=== PATIENT | male | born 1955 | race Caucasian/White ===

== ENCOUNTER → 2017-04-07 | Outpatient (CLI) | payer OTHER ==
[2017-04-07 14:41] LABS: CH 32.3; CHCM 34.4; HGB 14.8 gm/dL (13.0-17.5); MCH 31.8 pg (25.0-35.0); MCHC 33.6 g/dL (31.0-37.0); MCV 94.5 fL (80.0-100.0); Mean Platelet Volume 6.6; RBC 4.66 m/uL (4.30-5.90); RDW 12.9 % (11.5-15.5); WBC 7.5 k/uL (3.8-10.6)
[2017-04-07 14:57] LABS: Anion Gap 9 mmol/L; Blood Urea Nitrogen 18 mg/dL (9-20); Calcium 9.6 mg/dL (8.4-10.2); Carbon Dioxide 25 mmol/L (22-30); Chloride 107 mmol/L (98-107); Glucose 142 mg/dL (74-99); Non-African American GFR(MDRD) >60 (>60 ml/min/1.73 sqM); Potassium 4.2 mmol/L (3.5-5.1); Sodium 141 mmol/L (137-145)
== END | disposition home or self-care (01) ==
LOC: LABWHC1 14:18
PROVIDERS: ATTEND Internal Medicine Interventional Cardiology
DX: I25.10 Atherosclerotic heart disease of native coronary artery without angina pectoris (principal); I10 Essential (primary) hypertension
CPT/HCPCS: 36415; 80048; 80053; 84439; 84443; 85027; 85652; 86038; 86140; 86431; 86618

== ENCOUNTER 2017-05-18 10:13 | Emergency (ER) | payer OTHER ==
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
[2017-05-18 11:41] LABS: Amorphous Sediment,Urine Rare /hpf; Appearance,Urine Cloudy (Clear); Bilirubin,Urine Negative (Negative); Glucose,Urine (UA) Negative (Negative); Ketones,Urine Negative (Negative); Leukocyte Esterase,Urine Negative (Negative); Mucus,Urine Rare /hpf; Nitrite,Urine Negative (Negative); PH, Urine 7.5 (5.0-8.0); Particle Count 18051; Protein,Urine Negative (Negative); RBC,Urine 3 /hpf (0-5); Specific Gravity,Urine 1.017 (1.001-1.035); UA Billing (MACRO vs. MICRO) MICRO; Urobilinogen,Urine <2.0 mg/dL (<2.0); WBC,Urine 2 /hpf (0-5)
[2017-05-18 11:48] LABS: ALT 33 U/L (21-72); AST 23 U/L (17-59); Alkaline Phosphatase 95 U/L (38-126); Anion Gap 10 mmol/L; Blood Urea Nitrogen 20 mg/dL (9-20); Calcium 9.5 mg/dL (8.4-10.2); Carbon Dioxide 23 mmol/L (22-30); Chloride 107 mmol/L (98-107); Glucose 93 mg/dL (74-99); Magnesium 2.1 mg/dL (1.6-2.3); Non-African American GFR(MDRD) >60 (>60 ml/min/1.73 sqM); Potassium 4.6 mmol/L (3.5-5.1); Sodium 140 mmol/L (137-145); Total Bilirubin 0.6 mg/dL (0.2-1.3); Total Protein 6.7 g/dL (6.3-8.2)
[2017-05-18 12:04] LABS: Basophils % (A) 0 %; CH 32.1; CHCM 34.8; Eosinophils # (A) 0.2 k/uL (0-0.7); Eosinophils % (A) 2 %; HCT 43.5 % (39.0-53.0); HDW 2.79; HGB 15.4 gm/dL (13.0-17.5); Luc # (Auto) 0.12; Luc % (Auto) 2; Lymphocytes # (A) 1.1 k/uL (1.0-4.8); Lymphocytes % (A) 15 %; MCH 32.8 pg (25.0-35.0); MCHC 35.4 g/dL (31.0-37.0); MCV 92.7 fL (80.0-100.0); Mean Platelet Volume 6.7; Monocytes # (A) 0.5 k/uL (0-1.0); Monocytes % (A) 6 %; Neutrophils # (A) 5.8 k/uL (1.3-7.7); Neutrophils % (A) 76 %; RBC 4.69 m/uL (4.30-5.90); RDW 12.4 % (11.5-15.5); WBC 7.7 k/uL (3.8-10.6); WBC (Perox) 7.89
[2017-05-18 12:12] VITALS: RESP 16
[2017-05-18 13:36] VITALS: BP 180/87; PULSE 68; TEMP 97.1
== END 2017-05-18 13:33 | disposition home or self-care (01) ==
LOC: EC 10:13
DX: M79.1 Myalgia (principal); I10 Essential (primary) hypertension; M19.90 Unspecified osteoarthritis, unspecified site; I25.2 Old myocardial infarction; F17.200 Nicotine dependence, unspecified, uncomplicated; Z79.1 Long term (current) use of non-steroidal anti-inflammatories (NSAID); Z79.82 Long term (current) use of aspirin; Z79.899 Other long term (current) drug therapy
CPT/HCPCS: 36415; 80053; 81001; 83735; 85025; 99283

== ENCOUNTER → 2018-05-16 | Outpatient (CLI) | payer MEDICARE, OTHER ==
--- NOTE | 2018-05-16 13:57 | US ---
EXAMINATION TYPE: US abdomen complete DATE OF EXAM: 05/16/2018 COMPARISON: NONE CLINICAL HISTORY: R63.4 Abnormal Weight Loss, R11 Nausea; patient stated weighted 202lbs in 2016,now weighs 175lbs after watching calorie, fat and sugar intake; occasional nausea EXAM MEASUREMENTS: Liver Length: 14.1 cm Gallbladder Wall: 0.2 cm CBD: 0.5 cm Spleen: 10.8 cm Right Kidney: 10.6 x 5.5 x 5.2 cm Left Kidney: 11.2 x 6.8 x 5.9 cm Pancreas: tail is gassed out Liver: wnl Gallbladder: wnl, fold in wall is noted nearer to neck Evidence for sonographic Barrientos's sign: no CBD: wnl Spleen: wnl Right Kidney: No hydronephrosis or masses seen Left Kidney: No hydronephrosis or masses seen; lobular border Upper IVC: wnl Abd Aorta: irregular intimal thickening is noted lower aorta and into common iliac artery; mild ecta roslyn is noted distal aorta on images # [id number] and [id number]. IMPRESSION: 1. No acute intra-abdominal ultrasound abnormality. 2. 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
== END | disposition home or self-care (01) ==
LOC: RADUSWWP 09:31
PROVIDERS: ATTEND Family Medicine
DX: R11.0 Nausea (principal); I70.0 Atherosclerosis of aorta; R63.4 Abnormal weight loss
CPT/HCPCS: 76700

== ENCOUNTER 2019-04-23 10:25 | Emergency (ER) | payer MEDICARE ==
[2019-04-23] MEDS ORDERED: DIPH,PERTUS(ACELL)TETVAC-LF 0.5 ML VIAL IM ONE (11:39)
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
--- NOTE | 2019-04-23 12:23 | XR ---
EXAMINATION TYPE: XR hand complete RT DATE OF EXAM: 04/23/2019 CLINICAL HISTORY: Right hip pain since recent injury TECHNIQUE: Frontal, lateral and oblique images of the right hand are obtained. COMPARISON: None. FINDINGS: There is a comminuted nondisplaced fracture of the base of the third metacarpal extending i nto the metaphysis and proximal diaphysis with overlying soft tissue swelling. There is a chronic fra cture deformity of the fifth metacarpal. Mild degenerative changes of the distal interphalangeal join t and first metacarpal phalangeal joint are demonstrated as joint space narrowing and small marginal osteophytes. Punctate focus of subcutaneous emphysema is seen over the dorsal soft tissue swelling of the hand. Amputation of the third distal phalanx tuft appears chronic as there is no focal soft tiss ue swelling present. IMPRESSION: 1. Acute, comminuted, nondisplaced fracture of the base of the third metacarpal extending into the pr oximal diaphysis with overlying soft tissue swelling and punctate focus of subcutaneous emphysema. Co rrelate for laceration site or less likely superimposed infection. 2. Chronic fracture deformity of the fifth metacarpal and amputation of the distal third phalangeal t uft that is likely chronic given the overlying soft tissue swelling.
[2019-04-23 13:08] VITALS: BP 155/77; PULSE 62; RESP 16; TEMP 98.8
== END 2019-04-23 13:06 | disposition home or self-care (01) ==
LOC: EC 10:25
DX: S62.312A Displaced fracture of base of third metacarpal bone, right hand, initial encounter for closed fracture (principal); S61.411A Laceration without foreign body of right hand, initial encounter; I25.10 Atherosclerotic heart disease of native coronary artery without angina pectoris; I10 Essential (primary) hypertension; I25.2 Old myocardial infarction; M19.90 Unspecified osteoarthritis, unspecified site; F17.200 Nicotine dependence, unspecified, uncomplicated; Z85.828 Personal history of other malignant neoplasm of skin; Z95.5 Presence of coronary angioplasty implant and graft; Z79.82 Long term (current) use of aspirin; Z79.1 Long term (current) use of non-steroidal anti-inflammatories (NSAID); Z79.899 Other long term (current) drug therapy; Z23 Encounter for immunization; W24.0XXA Contact with lifting devices, not elsewhere classified, initial encounter; Y93.89 Activity, other specified; Y92.009 Unspecified place in unspecified non-institutional (private) residence as the place of occurrence of the external cause
CPT/HCPCS: 29125; 90471; 90715; 99284

== ENCOUNTER 2019-10-07 09:00 | Observation (INO) | payer MEDICARE ==
[2019-10-07] MEDS ORDERED: NITROGLYCERIN OINT 1 INCH/GM PACKET TOPICAL STA (09:48)
[2019-10-07] MEDS ORDERED: ASPIRIN 81 MG PO STA (09:48)
[2019-10-07 09:59] LABS: Basophils # (A) 0.1 k/uL (0-0.2); Basophils % (A) 1 %; Eosinophils # (A) 0.1 k/uL (0-0.7); Eosinophils % (A) 2 %; HCT 43.5 % (39.0-53.0); HGB 14.8 gm/dL (13.0-17.5); Lymphocytes # (A) 0.8 k/uL (1.0-4.8); Lymphocytes % (A) 16 %; MCH 32.2 pg (25.0-35.0); MCHC 33.9 g/dL (31.0-37.0); MCV 94.9 fL (80.0-100.0); Mean Platelet Volume 6.4; Monocytes # (A) 0.3 k/uL (0-1.0); Monocytes % (A) 5 %; Neutrophils # (A) 3.5 k/uL (1.3-7.7); Neutrophils % (A) 73 %; Platelet Count 241 k/uL (150-450); RBC 4.59 m/uL (4.30-5.90); RDW 12.1 % (11.5-15.5); WBC 4.8 k/uL (3.8-10.6)
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
[2019-10-07 10:17] LABS: ALT 27 U/L (21-72); AST 28 U/L (17-59); African American GFR (CKD) >90 (>60 ml/min/1.73 sqM); Albumin 3.6 g/dL (3.5-5.0); Alkaline Phosphatase 65 U/L (38-126); Anion Gap 6 mmol/L; Blood Urea Nitrogen 24 mg/dL (9-20); Calcium 9.4 mg/dL (8.4-10.2); Carbon Dioxide 27 mmol/L (22-30); Chloride 106 mmol/L (98-107); Glucose 115 mg/dL (74-99); Magnesium 2.1 mg/dL (1.6-2.3); Non-African American GFR(CKD) 83 (>60 ml/min/1.73 sqM); Potassium 4.5 mmol/L (3.5-5.1); Sodium 139 mmol/L (137-145); Total Bilirubin 0.8 mg/dL (0.2-1.3); Total Protein 6.5 g/dL (6.3-8.2)
[2019-10-07 10:18] LABS: Partial Thromboplastin Time 25.5 sec (22.0-30.0); Prothrombin Time 10.7 sec (9.0-12.0)
--- NOTE | 2019-10-07 10:20 | XR ---
EXAMINATION TYPE: XR chest 2V DATE OF EXAM: 10/07/2019 COMPARISON: 01/17/2016 HISTORY: Chest pain. History of myocardial infarct and COPD. TECHNIQUE: Frontal and lateral views of the chest are obtained. FINDINGS: Nodular densities are subtly seen in the left lung base and right lower lung. Underlying C OPD is present with pulmonary hyperinflation and biapical lucency. Peribronchial cuffing is noted, li mahesh reactive in this patient with COPD. Mild multilevel degenerative changes of the spine. Cardia me diastinal silhouette is within normal limits. No focal consolidation, pleural effusion or pneumothora x. IMPRESSION: 1. No focal consolidation. 2. Peribronchial cuffing and underlying COPD. Peribronchial cuffing is likely reactive. Alternatively consider bronchitis. 3. Bibasilar nodular densities. Follow-up nonemergent full CT the thorax with contrast is recommended for further characterization.
[2019-10-07] MEDS ORDERED: HEPARIN SODIUM,PORCINE 5,000 UNIT/ML 1 ML VIAL IV ONE (11:37)
[2019-10-07] MEDS ORDERED: HEPARIN SOD,PORK IN 0.45% NACL 25,000 UNIT in 0.45% NACL 1 250ML.BAG IV SCH (11:45)
[2019-10-07] MEDS ORDERED: NITROGLYCERIN SL TABS 0.4 MG TAB SUBLINGUAL PRN ×2 (12:21→13:01)
[2019-10-07 13:00] VITALS: BMI 24.8
[2019-10-07] MEDS ORDERED: ALPRAZolam 0.25 MG TAB PO PRN (13:01)
[2019-10-07] MEDS ORDERED: IPRATROPIUM-ALBUTEROL 3 ML NEB INHALATION PRN (13:03)
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
[2019-10-07] MEDS: IPRATROPIUM-ALBUTEROL 3 ML NEB INHALATION SCH ×2 (15:26→19:13)
[2019-10-07] MEDS: PANTOPRAZOLE 40 MG/10 ML VIAL IVP SCH ×2 (16:08→19:55)
[2019-10-07] MEDS: NITROGLYCERIN OINT 1 INCH/GM PACKET TOPICAL SCH (19:04)
[2019-10-07] MEDS: SYMBICORT 160-4.5 MCG INHALER INHALATION SCH (19:15)
[2019-10-07] MEDS ORDERED: ACETAMINOPHEN TAB 325 MG TAB PO PRN (19:48)
[2019-10-07] MEDS ORDERED: LISINOPRIL 20 MG TAB PO SCH (21:00)
[2019-10-07] MEDS ORDERED: ATORVASTATIN 40 MG TAB PO SCH (21:00)
[2019-10-08] MEDS: NITROGLYCERIN OINT 1 INCH/GM PACKET TOPICAL SCH ×2 (00:27→03:04)
[2019-10-08 00:40] VITALS: RESP 18
[2019-10-08 04:05] LABS: Cholesterol 104 mg/dL (<200); HDL Cholesterol 51 mg/dL (40-60); LDL Cholesterol,Calculated 41 mg/dL (0-99); Triglycerides 60 mg/dL (<150)
--- NOTE | 2019-10-08 08:14 | P.PN ---
Subjective HISTORY OF PRESENTING ILLNESS This is a pleasant 63-year-old male past medical history significant for coronary artery disease in the setting of an inferior wall myocardial infarction with successful stent placement to the RCA and a known occlusion of the circumflex, hypertension, dyslipidemia, COPD and chronic nicotine dependence. He is seen and examined laying flat in bed in no acute distress. He continues to feel ongoing discomfort in the chest that is constant with no specific aggravating or alleviating factors. An acute event has been ruled out. He denies significant shortness of breath, no dizziness or palpitations. Continues to cough sporadically. Blood pressure 141/77 heart rate 55 afebrile and maintaining oxygen saturation on room air. Laboratory data reviewed, cardiac enzymes negative x3, LDL 41, HDL 51. Echo pending. Currently maintained on atenolol 25 mg daily, amlodipine 10 mg daily, aspirin 81 mg daily, atorvastatin 40 mg daily, lisinopril 20 mg daily and hydrochlorothiazide 12.5 mg daily. PHYSICAL EXAMINATION CONSTITUTIONAL: No apparent distress. HEENT: Head is normocephalic. Pupils are equal, round. Sclerae anicteric. Mucous membranes of the mouth are moist. No JVD. No carotid bruit. CHEST EXAMINATION: Faint inspiratory and expiratory wheezes throughout lung cesar. No chest wall tenderness is noted on palpation or with deep breathing. No rhonchi or rales. HEART EXAMINATION: Regular rate and rhythm. S1, S2 heard. No murmurs, gallops or rub. EXTREMITIES: 2+ peripheral pulses, no lower extremity edema and no calf tenderness. ASSESSMENT Chest pain, atypical. Underlying bronchitis COPD History of coronary artery disease with acute inferior wall [place] 2009 Hypertension Dyslipidemia Chronic nicotine dependence PLAN If echo is unchanged, he may be discharged from a cardiac perspective. Recommend outpatient stress testing once his respiratory illness has improved. Follow up with Dr. Hernandez in the office in 2-3 weeks. Nurse Practitioner note has been reviewed, I agree with a documented findings and plan of care. Patient was seen and examined. Objective - Vital Signs Vital signs: Vital Signs Temp 97.9 F 10/08/19 07:49 Pulse 55 L 10/08/19 07:49 Resp 18 10/08/19 07:49 BP 141/77 10/08/19 07:49 Pulse Ox 97 10/08/19 07:49 Intake & Output 10/07/19 10/08/19 10/08/19 18:59 06:59 18:59 Intake Total 85.414 Balance 85.414 Weight 78.653 kg Intake: Intake, IV Titration 85.414 Amount Heparin Sod,Pork in 0.45% 85.414 NaCl 25,000 unit In 0.45 % NaCl 1 250ml.bag @ 12 UNITS/KG/HR 9.438 mls/hr IV .Q24H [facility] Rx#: [id number] Other: # Voids 1 - Labs CBC & Chem 7: 10/07/19 09:17 10/07/19 09:17 Labs: Abnormal Lab Results - Last 24 Hours (Table) 10/07/19 10/07/19 10/07/19 Range/Units 09:17 09:17 20:24 Lymphocytes # 0.8 L (1.0-4.8) k/uL APTT 40.9 H (22.0-30.0) sec BUN 24 H (9-20) mg/dL Glucose 115 H (74-99) mg/dL 10/08/19 Range/Units 03:04 Lymphocytes # (1.0-4.8) k/uL APTT 65.4 H (22.0-30.0) sec BUN (9-20) mg/dL Glucose (74-99) mg/dL
[2019-10-08] MEDS ORDERED: ASPIRIN 325 MG TAB PO SCH (09:00)
[2019-10-08] MEDS ORDERED: HYDROCHLOROTHIAZIDE 12.5 MG CAP PO SCH (09:00)
[2019-10-08] MEDS ORDERED: LISINOPRIL 20 MG TAB PO SCH (09:00)
[2019-10-08] MEDS ORDERED: amLODIPine 10 MG TAB PO SCH (09:00)
[2019-10-08] MEDS ORDERED: ATENOLOL 25 MG TAB PO SCH ×2 (09:00)
[2019-10-08] MEDS ORDERED: ASPIRIN 81 MG PO SCH (09:00)
[2019-10-08] MEDS: PANTOPRAZOLE 40 MG/10 ML VIAL IVP SCH (10:08)
[2019-10-08] MEDS: IPRATROPIUM-ALBUTEROL 3 ML NEB INHALATION SCH ×2 (11:00→11:03)
[2019-10-08] MEDS: SYMBICORT 160-4.5 MCG INHALER INHALATION SCH (11:01)
[2019-10-08 11:48] VITALS: BP 137/64; PULSE 50; TEMP 97.8
--- NOTE | 2019-10-08 15:01 | ECHOF ---
Referral Reason: MEASUREMENTS -------- HEIGHT: 177.8 cm WEIGHT: 78.5 kg BP: 129/74 IVSd: 1.4 cm (0.6 - 1.1) LVIDd: 4.6 cm (3.9 - 5.3) LVPWd: 1.1 cm (0.6 - 1.1) IVSs: 1.7 cm LVIDs: 3.1 cm LVPWs: 1.3 cm RVIDd: 4.0 cm (< 3.3) LAESV Index (A-L): 47.90 ml/m Ao Diam: 3.3 cm (2.0 - 3.7) AV Cusp: 2.3 cm (1.5 - 2.6) EPSS: 0.1 cm MV E Wallace: 0.93 m/s MV DecT: 259 ms MV A Wallace: 0.48 m/s MV E/A Ratio: 1.92 RAP: 20.00 mmHg RVSP: 48.11 mmHg MV EF SLOPE: 43.55 mm/s (70 - 150) MV EXCURSION: 14.99 mm (> 18.000) FINDINGS -------- Resting bradycardia (HR<60bpm). This was a technically adequate study. The left ventricular size is normal. There is mild concentric left ventricular hypertrophy. Overa ll left ventricular systolic function is low-normal with, an EF between 50 - 55 %. Increased Lap Gr shona II Diastolic Dysfunction. Inferior Hypokinesis The right ventricle is mildly enlarged. LA is severely dilated >40 ml/m2 The right atrium is mildly enlarged. Interatrial and interventricular septum intact. The aortic valve is trileaflet and appears structurally normal. There is mild aortic valve sclerosi s. There is no evidence of aortic regurgitation. There is no evidence of aortic stenosis. Moderate mitral regurgitation is present. Moderate tricuspid regurgitation present. There is moderate pulmonary hypertension. The right bev tricular systolic pressure, as measured by Doppler, is 48.11mmHg. The pulmonic valve was not well visualized. The aortic root size is normal. The inferior vena cava is dilated with poor inspiratory collapse which is consistent with estimated r ight atrial pressure of 20 mmHg. There is no pericardial effusion. CONCLUSIONS -------- 1. Resting bradycardia (HR<60bpm). 2. This was a technically adequate study. 3. The left ventricular size is normal. 4. There is mild concentric left ventricular hypertrophy. 5. Overall left ventricular systolic function is low-normal with, an EF between 50 - 55 %. 6. Increased Lap Grade II Diastolic Dysfunction. 7. Inferior Hypokinesis 8. The right ventricle is mildly enlarged. 9. LA is severely dilated >40 ml/m2 10. The right atrium is mildly enlarged. 11. Interatrial and interventricular septum intact. 12. The aortic valve is trileaflet and appears structurally normal. 13. There is mild aortic valve sclerosis. 14. There is no evidence of aortic regurgitation. 15. There is no evidence of aortic stenosis. 16. Moderate mitral regurgitation is present. 17. Moderate tricuspid regurgitation present. 18. There is moderate pulmonary hypertension. 19. The right ventricular systolic pressure, as measured by Doppler, is 48.11mmHg. 20. The pulmonic valve was not well visualized. 21. The aortic root size is normal. 22. The inferior vena cava is dilated with poor inspiratory collapse which is consistent with estimat ed right atrial pressure of 20 mmHg. 23. There is no pericardial effusion. SHIFT COORDINATOR: Hilda Hadley RDCS
--- NOTE | 2019-10-08 15:11 | P.DS ---
Providers Date of admission: 10/07/19 12:22 Attending physician: Hector Gomez Consults: 10/07/19 12:22 Consult Physician Urgent Consulting Provider: [facility] Consult Reason/Comments: Unstable angina Do you want consulting provider notified?: Yes Primary care physician: Saul Bain [facility] Course: 63-year-old pleasant gentleman with a history of coronary artery disease appears to have COPD can use to smoke came in with complains of neck pain radiating to the chest area. Patient's neck pain is severe chest pain is pressure-like and mild nonradiating associated shortness of breath. Denied any lightheadedness or chest pain is nonpleuritic not associated with food. Patient also has epigastric abdominal burning sensation S it along with retrosternal burning sensation. Patient denied any fever chills. Patient was having cough was treated with antibiotics and the systemic steroids for his COPD although patient doesn't tolerate cystic steroids very well because of which she stopped taking oral steroids. Patient has significant wheeze on exam. 10/08/2019 Patient was evaluated by cardiology to cleared him for discharge patient's abdominal pain and burning sensation improved patient will be discharged today. Patient wheezing did improve. Patient has multiple nodular lesions in the lung suspicious for sarcoidosis, will need further evaluation by pulmonology patient will be referred to pulmonology as an outpatient. Patient was given prescription for Prilosec for about 30 days PHYSICAL EXAMINATION: GENERAL: The patient is alert and oriented x3, not in any acute distress. Well developed, well nourished. HEENT: Pupils are round and equally reacting to light. EOMI. No scleral icterus. No conjunctival pallor. Normocephalic, atraumatic. No pharyngeal erythema. No thyromegaly. CARDIOVASCULAR: S1 and S2 present. No murmurs, rubs, or gallops. PULMONARY: Chest is clear to auscultation, no wheezing or crackles. ABDOMEN: Soft, nontender, nondistended, normoactive bowel sounds. No palpable organomegaly. MUSCULOSKELETAL: No joint swelling or deformity. EXTREMITIES: No cyanosis, clubbing, or pedal edema. NEUROLOGICAL: Gross neurological examination did not reveal any focal deficits. SKIN: No rashes. Assessment and Plan Plan: Chest pain: Atypical , ruled out acute medicine syndromes cardiology evaluated the patient. Patient probably has multiple etiologies of his chest pain #1 musculoskeletal from his neck and probably gastroesophageal reflux disease. Shortness of breath probably secondary to COPD patient was started on inhaled steroids inhalational treatments I do not believe patient will need systemic steroids -Coronary artery disease -COPD with mild acute exacerbation -Hypertension -Degenerative arthritis including cervical thoracolumbar spine disease. -Hyperlipidemia -Gastroesophageal reflux disease with a possible gastritis from systemic steroids and nonsteroidal anti-inflammatory medications Patient Condition at Discharge: Stable Plan - Discharge Summary Discharge Rx Participant: No New Discharge Prescriptions: New Omeprazole [PriLOSEC] 40 mg PO AC-BRKFST #30 capsule.dr Continue Aspirin 81 mg PO DAILY Nitroglycerin Sl Tabs [Nitrostat] 0.4 mg SUBLINGUAL Q5M PRN PRN Reason: Chest Pain Atenolol [Tenormin] 25 mg PO DAILY Multivitamin [Men's Multi-Vitamin] 1 tab PO DAILY Ubidecarenone [Co Q-10] 100 mg PO DAILY [place]-3 Fatty Acids/Fish Oil [Fish Oil 1,000 mg Softgel] 1 cap PO DAILY Cholecalciferol [Vitamin D3 (25 Mcg = 1000 Iu)] 1,000 unit PO DAILY Budesonide-Formot 160-4.5 Mcg [Symbicort 160-4.5 Mcg Inhaler] 2 puff INHALATION RT-BID #1 puff Albuterol Inhaler [Ventolin Hfa Inhaler] 2 puff INHALATION RT-Q4H #1 amLODIPine [Norvasc] 10 mg PO DAILY ALPRAZolam [Xanax] 0.25 - 0.5 mg PO BID PRN PRN Reason: Anxiety Ipratropium-Albuterol Nebulize [Duoneb 0.5 mg-3 mg/3 ml Soln] 3 ml INHALATION RT-QID Changed Benazepril HCl 20 mg PO DAILY #0 Discontinued Hydrochlorothiazide 12.5 mg PO DAILY Naproxen [Naprosyn] 500 mg PO BID Discharge Medication List Aspirin 81 mg PO DAILY 10/11/14 [History] Atenolol [Tenormin] 25 mg PO DAILY 10/11/14 [History] Nitroglycerin Sl Tabs [Nitrostat] 0.4 mg SUBLINGUAL Q5M PRN 10/11/14 [History] Cholecalciferol [Vitamin D3 (25 Mcg = 1000 Iu)] 1,000 unit PO DAILY 03/27/15 [History] Multivitamin [Men's Multi-Vitamin] 1 tab PO DAILY 03/27/15 [History] [place]-3 Fatty Acids/Fish Oil [Fish Oil 1,000 mg Softgel] 1 cap PO DAILY 03/27/15 [History] Ubidecarenone [Co Q-10] 100 mg PO DAILY 03/27/15 [History] Budesonide-Formot 160-4.5 Mcg [Symbicort 160-4.5 Mcg Inhaler] 2 puff INHALATION RT-BID #1 puff 03/28/15 [Rx] Albuterol Inhaler [Ventolin Hfa Inhaler] 2 puff INHALATION RT-Q4H #1 12/05/15 [Rx] ALPRAZolam [Xanax] 0.25 - 0.5 mg PO BID PRN 04/23/19 [History] amLODIPine [Norvasc] 10 mg PO DAILY 04/23/19 [History] Ipratropium-Albuterol Nebulize [Duoneb 0.5 mg-3 mg/3 ml Soln] 3 ml INHALATION RT-QID 10/07/19 [History] Benazepril HCl 20 mg PO DAILY #0 10/08/19 [Rx] Omeprazole [PriLOSEC] 40 mg PO AC-BRKFSLula #30 capsule. 10/08/19 [Rx] Follow up Appointment(s)/Referral(s): Jazmyn Hernandez MD [STAFF PHYSICIAN] - 2 Weeks Saul Aleman III, MD [Primary Care Provider] - 3 Days Franck Barker MD [STAFF PHYSICIAN] - 1 Week Patient Instructions/Handouts: Chest Pain (GEN) Discharge Disposition: HOME SELF-CARE
== END 2019-10-08 13:00 | disposition home or self-care (01) ==
LOC: EC 09:00 → 1SOBS 12:22
PROVIDERS: ADMIT Internal Medicine; ATTEND Internal Medicine
DX: R07.89 Other chest pain (principal); M54.2 Cervicalgia; R06.02 Shortness of breath; R42 Dizziness and giddiness; R11.0 Nausea; J44.1 Chronic obstructive pulmonary disease with (acute) exacerbation; E78.00 Pure hypercholesterolemia, unspecified; I25.10 Atherosclerotic heart disease of native coronary artery without angina pectoris; I10 Essential (primary) hypertension; M46.93 Unspecified inflammatory spondylopathy, cervicothoracic region; E78.5 Hyperlipidemia, unspecified; K21.9 Gastro-esophageal reflux disease without esophagitis; F41.9 Anxiety disorder, unspecified; I25.2 Old myocardial infarction; F17.200 Nicotine dependence, unspecified, uncomplicated; R00.1 Bradycardia, unspecified; M16.12 Unilateral primary osteoarthritis, left hip; M19.042 Primary osteoarthritis, left hand; M19.041 Primary osteoarthritis, right hand; Z87.828 Personal history of other (healed) physical injury and trauma; Z85.828 Personal history of other malignant neoplasm of skin; Z87.19 Personal history of other diseases of the digestive system; Z95.5 Presence of coronary angioplasty implant and graft; Z98.1 Arthrodesis status; Z90.49 Acquired absence of other specified parts of digestive tract; Z79.899 Other long term (current) drug therapy; Z79.82 Long term (current) use of aspirin; Z79.1 Long term (current) use of non-steroidal anti-inflammatories (NSAID); Z82.49 Family history of ischemic heart disease and other diseases of the circulatory system; Z82.3 Family history of stroke
CPT/HCPCS: 93005 ×2; 96366 ×3; 96375; 96376 ×3; 96365; 99291; 36415; 94640 ×4; 94760 ×2; 93306; 80061; 80053; 83735; 84484; 85025; 85610; 85730 ×2; 71046; G0378 ×2; J1644 ×2; C9113 ×2

== ENCOUNTER → 2019-10-21 | Outpatient (CLI) | payer MEDICARE ==
--- NOTE | 2019-10-21 08:28 | CTL ---
EXAMINATION TYPE: CT Low Dose Lung DATE OF EXAM ORDERED: 10/21/2019 COMPARISON: HISTORY: . Low Dose CT Lung Screening CT DLP: [address] CTDI: 2.5 mGy IV CONTRAST USED: None. SCREENING VISIT: First visit COMPARISON: None. TECHNIQUE: Low dose computed tomography scan was performed through the chest at 1 millimeter thick se ctions and reconstructed images in the coronal plane at [address] DIAGNOSTIC QUALITY: Satisfactory FINDINGS: LUNG NODULES: Right lun. 5 mm solid nodule right upper lobe image 147. 2. right lower lobe solid nodule measuring 7.6 mm image 195. 3. Pleural-based solid nodule measuring 8 mm lateral segment right middle lobe. Image 215. 4. Solid pleural-based nodule measuring 7.6 mm image 272 lateral sulcus. Left lun. Left lower lobe solid nodule measuring 7 mm image 224. 2. 3.6 mm solid nodule left lower lobe image 214. LUNGS: COPD: Severity: Moderate upper lobe emphysematous changes demonstrated. Fibrosis: Severity:None Lymph nodes: None Other findings: None RIGHT PLEURAL SPACE: Effusion: None Calcification: None Thickening: None Pneumothorax: None LEFT PLEURAL SPACE: Effusion: None Calcification: None Thickening: None Pneumothorax: None HEART: Heart Size: Mildly enlarged Coronary calcification: Moderate Pericardial effusion: None OTHER FINDINGS: Upper abdomen: No significant abnormality Bony thorax: Degenerative changes Supraclavicular region: No significant abnormalityOther: No significant abnormalityI IMPRESSION: 1. Nonspecific pulmonary nodularity. 2. Moderate upper lobe emphysematous changes. 3. Coronary artery calcifications. FOLLOW UP CT CHEST RECOMMENDATION: 6 month follow-up by LDCT. Smoking cessation advised. CT LUNG RAD: LUNG RAD CATEGORY probably benign BI-RADS 3
== END | disposition home or self-care (01) ==
LOC: RADCTMAIN 07:41
PROVIDERS: ATTEND Family Medicine
DX: Z12.2 Encounter for screening for malignant neoplasm of respiratory organs (principal); J43.9 Emphysema, unspecified; I25.10 Atherosclerotic heart disease of native coronary artery without angina pectoris; Z87.891 Personal history of nicotine dependence

== ENCOUNTER 2021-02-22 15:11 | Inpatient (IN) | payer MEDICARE ==
[2021-02-22] MEDS ORDERED: ASPIRIN 81 MG PO STA (16:38)
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
[2021-02-22 17:52] LABS: Albumin 3.9 g/dL (3.5-5.0); Calcium 9.8 mg/dL (8.4-10.2); Magnesium 2.1 mg/dL (1.6-2.3); Potassium 4.4 mmol/L (3.5-5.1); Total Bilirubin 1.2 mg/dL (0.2-1.3); Total Protein 6.7 g/dL (6.3-8.2)
[2021-02-22 17:54] LABS: Basophils % (A) 0 %; Eosinophils # (A) 0.1 k/uL (0-0.7); Eosinophils % (A) 1 %; HCT 46.5 % (39.0-53.0); HGB 15.7 gm/dL (13.0-17.5); Lymphocytes # (A) 0.5 k/uL (1.0-4.8); Lymphocytes % (A) 6 %; MCHC 33.8 g/dL (31.0-37.0); MCV 94.7 fL (80.0-100.0); Monocytes # (A) 0.3 k/uL (0-1.0); Monocytes % (A) 4 %; Neutrophils % (A) 89 %; Platelet Count 182 k/uL (150-450); RBC 4.91 m/uL (4.30-5.90); RDW 12.7 % (11.5-15.5)
[2021-02-22 17:55] LABS: Partial Thromboplastin Time 23.9 sec (22.0-30.0); Prothrombin Time 10.7 sec (9.0-12.0)
--- NOTE | 2021-02-22 17:59 | XR ---
EXAMINATION TYPE: XR chest 1V portable DATE OF EXAM: 02/22/2021 COMPARISON: 10/07/2019 HISTORY: Chest pain TECHNIQUE: Single view FINDINGS: There is no heart failure nor confluent pneumonic infiltrate. There are a few calcified gra nulomata at the pulmonary dylan. Is no pleural effusion. Heart size is normal. IMPRESSION: No active cardiopulmonary disease. Old granulomatous disease. No change.
[2021-02-22] MEDS ORDERED: HEPARIN SODIUM,PORCINE 5,000 UNIT/ML 1 ML VIAL IV PRN (18:18)
[2021-02-22] MEDS ORDERED: HEPARIN SODIUM,PORCINE 5,000 UNIT/ML 1 ML VIAL IV ONE (18:18)
[2021-02-22] MEDS ORDERED: NITROGLYCERIN SL TABS 0.4 MG TAB SUBLINGUAL STA (18:22)
[2021-02-22] MEDS ORDERED: NITROGLYCERIN OINT 1 INCH/GM PACKET TOPICAL STA (18:23)
[2021-02-22] MEDS ORDERED: NITROGLYCERIN SL TABS 0.4 MG TAB SUBLINGUAL PRN ×2 (18:24→19:21)
[2021-02-22] MEDS: HEPARIN SOD,PORK IN 0.45% NACL 25,000 UNIT in 0.45% NACL 1 250ML.BAG IV SCH (18:54)
[2021-02-22] MEDS ORDERED: ALPRAZolam 0.5 MG TAB PO PRN (19:21)
[2021-02-22] MEDS ORDERED: IPRATROPIUM-ALBUTEROL 3 ML NEB INHALATION PRN (19:22)
[2021-02-22] MEDS ORDERED: HYDROcodone/APAP 5-325MG 1 EACH TAB PO PRN (19:23)
[2021-02-22] MEDS ORDERED: ACETAMINOPHEN TAB 500 MG TAB PO PRN (19:23)
[2021-02-22] MEDS ORDERED: TEMAZEPAM 15 MG CAP PO PRN (19:23)
--- NOTE | 2021-02-22 20:04 | CT ---
EXAMINATION TYPE: CT angio chest DATE OF EXAM: 02/22/2021 COMPARISON: None HISTORY: pe CT DLP: 318.6 mGycm Automated exposure control for dose reduction was used. CONTRAST: Performed with IV Contrast, patient injected with 100 mL of Isovue 370. Images obtained from the thoracic inlet to the diaphragm with IV contrast and 3-D post processing. There is mild to moderate pulmonary bullous emphysema. Heart size is normal. There is no pericardial effusion. There is no pleural effusion. There is 1 cm noncalcified subpleural nodule lateral aspect r ight lower lobe. There is 1 cm nodule adjacent to the pleura in the right middle lobe. There is 5 mm nodule in the anterior right upper lobe. There is no mediastinal adenopathy. There are no hilar masses. Thoracic aorta appears intact. There i s no dissection. The ascending aorta measures 3.7 cm. There is no aneurysm. There is normal contrast opacification of the pulmonary arteries. There are no filling defects. Thoracic vertebra have normal alignment. There is no compression fracture. There is spurring of the e ndplates anteriorly in the lower thoracic spine. Sternum is intact. IMPRESSION: No evidence of pulmonary embolism. Pulmonary emphysema. There are a few right-sided pulmonary nodules which appear not significantly different than old CT sc an of 10/21/2019 and very likely benign...
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
[2021-02-22] MEDS: IPRATROPIUM-ALBUTEROL 3 ML NEB INHALATION SCH (21:39)
[2021-02-22] MEDS: SYMBICORT 160-4.5 MCG INHALER INHALATION SCH (21:39)
[2021-02-22] MEDS: NICOTINE 14MG/24HR PATCH TRANSDERM SCH (22:46)
[2021-02-22] MEDS: lisinopriL 20 MG TAB PO SCH (22:50)
[2021-02-23 01:00] LABS: Appearance,Urine Clear (Clear); Bilirubin,Urine Negative (Negative); Blood,Urine Negative (Negative); Color,Urine Yellow; Glucose,Urine (UA) Negative (Negative); Ketones,Urine Negative (Negative); Leukocyte Esterase,Urine Negative (Negative); Nitrite,Urine Negative (Negative); PH, Urine 6.5 (5.0-8.0); Protein,Urine Negative (Negative); Urobilinogen,Urine <2.0 mg/dL (<2.0)
[2021-02-23 01:05] LABS: Specific Gravity,Urine >1.050 (1.001-1.035)
[2021-02-23 01:12] LABS: Amphetamine Screen,Urine Not Detected (NotDetected); Barbiturate Screen,Urine Not Detected (NotDetected); Benzodiazepines Screen,Urine Not Detected (NotDetected); Cocaine Screen,Urine Not Detected (NotDetected); Methadone Screen, Urine Not Detected (NotDetected); Opiate Screen,Urine Not Detected (NotDetected); Oxycodone Screen, Urine Not Detected (NotDetected); Phencyclidine Screen,Urine Not Detected (NotDetected); Tricyclic Antidepressant,Urine Not Detected (NotDetected); Urn Cannabinoid Scrn Detected (NotDetected)
[2021-02-23] MEDS: PANTOPRAZOLE 40 MG TABLET PO SCH (06:20)
[2021-02-23] MEDS: IPRATROPIUM-ALBUTEROL 3 ML NEB INHALATION SCH ×4 (07:23→21:20)
[2021-02-23] MEDS: SYMBICORT 160-4.5 MCG INHALER INHALATION SCH ×2 (07:24→21:20)
[2021-02-23] MEDS: hydroCHLOROthiazide 12.5 MG CAP PO SCH (08:10)
[2021-02-23] MEDS: amLODIPine 10 MG TAB PO SCH (08:10)
[2021-02-23] MEDS: lisinopriL 20 MG TAB PO SCH ×2 (08:10→20:11)
[2021-02-23] MEDS: atenoloL 25 MG TAB PO SCH (08:10)
[2021-02-23] MEDS: NICOTINE 14MG/24HR PATCH TRANSDERM SCH (08:11)
[2021-02-23 08:28] LABS: Basophils % (A) 0 %; Eosinophils # (A) 0.1 k/uL (0-0.7); Eosinophils % (A) 3 %; HCT 38.9 % (39.0-53.0); HGB 14.3 gm/dL (13.0-17.5); Lymphocytes # (A) 0.4 k/uL (1.0-4.8); Lymphocytes % (A) 10 %; MCH 34.7 pg (25.0-35.0); MCHC 36.7 g/dL (31.0-37.0); MCV 94.6 fL (80.0-100.0); Mean Platelet Volume 7.6; Monocytes # (A) 0.4 k/uL (0-1.0); Monocytes % (A) 9 %; Neutrophils # (A) 3.2 k/uL (1.3-7.7); Neutrophils % (A) 77 %; Platelet Count 152 k/uL (150-450); RBC 4.11 m/uL (4.30-5.90); WBC 4.2 k/uL (3.8-10.6)
[2021-02-23 08:37] LABS: Calcium 8.5 mg/dL (8.4-10.2)
[2021-02-23] MEDS ORDERED: NON FORMULARY DRUG (Omega-3 Fatty Acids/Fish Oil [Fish Oil 1,000 Mg Softgel] 1 EACH Capsul PO SCH (09:00)
[2021-02-23] MEDS ORDERED: ASPIRIN 325 MG TAB PO SCH (09:00)
--- NOTE | 2021-02-23 10:50 | ECHOF ---
Referral Reason:LV function MEASUREMENTS -------- HEIGHT: 157.5 cm WEIGHT: 84.4 kg BP: RVIDd: 2.8 cm (< 3.3) IVSd: 0.9 cm (0.6 - 1.1) LVIDd: 4.7 cm (3.9 - 5.3) LVPWd: 1.0 cm (0.6 - 1.1) IVSs: 1.6 cm LVIDs: 3.5 cm LVPWs: 1.4 cm LAESV Index (A-L): 37.72 ml/m Ao Diam: 2.8 cm (2.0 - 3.7) AV Cusp: 1.7 cm (1.5 - 2.6) LA Diam: 3.7 cm (2.7 - 3.8) MV EXCURSION: 17.354 mm (> 18.000) MV EF SLOPE: 59 mm/s (70 - 150) EPSS: 0.7 cm MV E Wallace: 0.85 m/s MV DecT: 199 ms MV A Wallace: 0.75 m/s MV E/A Ratio: 1.14 RAP: 5.00 mmHg RVSP: 36.83 mmHg FINDINGS -------- Sinus rhythm. This was a technically good study. The left ventricular size is normal. Overall left ventricular systolic function is low-normal with, an EF between 50 - 55 %. Basal posterior LV wall motion is hypokinetic. Basal inferior LV wall motion is hypokinetic. The right ventricle is normal in size. LA is moderately dilated 34-39 ml/m2 The right atrial size is normal. There is mild aortic valve sclerosis. There is no evidence of aortic regurgitation. [id number] mitral regurgitation is present. Mild tricuspid regurgitation present. There is mild pulmonary hypertension. The aortic root size is normal. There is no pericardial effusion. CONCLUSIONS -------- 1. The left ventricular size is normal. 2. Basal posterior LV wall motion is hypokinetic. 3. Basal inferior LV wall motion is hypokinetic. 4. The right ventricle is normal in size. 5. LA is moderately dilated 34-39 ml/m2 6. The right atrial size is normal. 7. There is mild aortic valve sclerosis. 8. Vdby-pw-bpgrlhll mitral regurgitation is present. 9. Mild tricuspid regurgitation present. 10. There is mild pulmonary hypertension. 11. The aortic root size is normal. 12. There is no pericardial effusion. LEAD BUSINESS ANALYST: Lennie Liriano RDCS
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
--- NOTE | 2021-02-23 13:09 | CT ---
EXAMINATION TYPE: CT brain wo con DATE OF EXAM: 02/23/2021 COMPARISON: Prior CT brain 02/23/2021 HISTORY: headache CT DLP: 1018 mGycm Automated exposure control for dose reduction was used. Helical imaging through the brain FINDINGS: There is no hemorrhage or hydrocephalus. Periventricular white matter shows some patchy low attenuati on. Mild cortical atrophy noted. Cerebral vascular calcifications are present. There are some inflamm atory changes present within the ethmoid air cells. Calvarium is intact. IMPRESSION: NO ACUTE BRAIN ABNORMALITY. STABLE EXAM. AGE-RELATED CHANGES OF ATROPHY AND PROBABLE CHRONIC SMALL VE SSEL ISCHEMIA, ETHMOID SINUS DISEASE AGAIN NOTED. CONSIDER BRAIN MRI INDICATED
--- NOTE | 2021-02-23 13:33 | CT ---
EXAMINATION TYPE: CT soft tissue neck wo con DATE OF EXAM: 02/23/2021 COMPARISON: None HISTORY: headache CT DLP: 333.4 mGycm CONTRAST: Patient injected with 0 mL of Isovue 300. TECHNIQUE: Axial images at 3 mm thick sections. Reconstructed images in the coronal plane and sagitt al plane are reviewed. FINDINGS: Limited CT sections are obtained the lung apices. The lung apices appear clear. Emphysemat ous blebs and bulla are present. CT neck: The torus tubarius and fossa of Rosenmuller are normal. Foot Tender spaces are normal. Para nasal sinuses and mastoid air cells are clear. Parotid glands appear normal and symmetrical. Submandibular glands, are normal. Parapharyngeal spac es are normal. No suspicious adenopathy is evident. Scattered small lymph nodes are present bilatera lly. The hypopharynx appears within normal limits. Carotid bifurcation atheromatous plaquing is noted. Vocal cord level appear symmetrical. Thyroid as visualized is normal. Osseous structures are normal. IMPRESSIONS: 1. No acute abnormality to account for headache
[2021-02-23 14:12] LABS: C Reactive Protein 69.7 mg/L (<10.0)
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
[2021-02-23] MEDS: HEPARIN SOD,PORK IN 0.45% NACL 25,000 UNIT in 0.45% NACL 1 250ML.BAG IV SCH (15:53)
[2021-02-23 23:43] LABS: Ferritin 256.2 ng/mL (22.0-322.0)
[2021-02-24] MEDS: PANTOPRAZOLE 40 MG TABLET PO SCH (06:38)
[2021-02-24 07:46] LABS: Basophils % (A) 0 %; Eosinophils # (A) 0.2 k/uL (0-0.7); Eosinophils % (A) 4 %; HGB 14.9 gm/dL (13.0-17.5); Lymphocytes % (A) 22 %; MCH 32.7 pg (25.0-35.0); MCHC 34.6 g/dL (31.0-37.0); MCV 94.5 fL (80.0-100.0); Mean Platelet Volume 7.5; Monocytes # (A) 0.5 k/uL (0-1.0); Monocytes % (A) 10 %; Neutrophils # (A) 2.9 k/uL (1.3-7.7); Neutrophils % (A) 62 %; Platelet Count 176 k/uL (150-450); RBC 4.55 m/uL (4.30-5.90); RDW 12.2 % (11.5-15.5); WBC 4.7 k/uL (3.8-10.6)
[2021-02-24 07:57] LABS: Calcium 8.9 mg/dL (8.4-10.2)
[2021-02-24] MEDS: IPRATROPIUM-ALBUTEROL 3 ML NEB INHALATION SCH ×3 (08:02→15:20)
[2021-02-24] MEDS: SYMBICORT 160-4.5 MCG INHALER INHALATION SCH (08:02)
[2021-02-24] MEDS: NICOTINE 14MG/24HR PATCH TRANSDERM SCH (08:15)
[2021-02-24] MEDS ORDERED: REGADENOSON 0.4 MG/5 ML SYRINGE IV PRN (09:00)
[2021-02-24] MEDS ORDERED: AMINOPHYLLINE 500 MG/20 ML VIAL IV PRN (09:00)
[2021-02-24] MEDS ORDERED: ASPIRIN 81 MG PO SCH (09:00)
[2021-02-24] MEDS ORDERED: CAFFEINE CITRATE 60 MG/3 ML VIAL IV PRN (09:00)
[2021-02-24] MEDS: lisinopriL 20 MG TAB PO SCH (10:40)
[2021-02-24] MEDS: amLODIPine 10 MG TAB PO SCH (10:40)
[2021-02-24] MEDS: hydroCHLOROthiazide 12.5 MG CAP PO SCH (10:40)
[2021-02-24] MEDS: atenoloL 25 MG TAB PO SCH (10:40)
[2021-02-24 11:15] VITALS: BP 138/74; RESP 20; TEMP 98.4
--- NOTE | 2021-02-24 11:21 | NM ---
EXAMINATION TYPE: NM stress lexiscan cardiolite DATE OF EXAM: 02/24/2021 COMPARISON: NONE HISTORY: Chest pain TECHNIQUE: After the intravenous administration of 10.3 mCi Tc 99m Sestamibi - Cardiolite resting SP ECT images acquired 45 minutes post injection. At peak stress 25.5 mCi Tc 99m Sestamibi - Stress images obtained 30 minutes post injection The patient was stressed with 0.4mg Lexiscan. FINDINGS: There is diminished radiotracer accumulation along the inferior wall on both rest and stres s images. This appears to be matched. Diminished radiotracer accumulation along the anterior septal w all. No reversible perfusion defects are evident. Very subtle dyskinesia of the anterior wall in the mid portion may be present. Ejection fraction is calculated to be 59 %. IMPRESSION: 1. Fixed defect along the inferior wall and the anterior mid wall could be prior infarcts. 2. No stress-induced ischemic change 3. Mild dyskinesia of the mid anterior wall. Wall motion and ejection fraction otherwise unremarkable
[2021-02-24 12:17] VITALS: PULSE 64
--- NOTE | 2021-02-24 12:33 | EST ---
EXERCISE STRESS AGE: 65 SEX: Male HT: 5'10" WT: 180 lbs. PROTOCOL: Lexiscan Cardiolite STAGE: N/A DURATION OF EXERCISE: N/A HEART RATE REST: 62 BLOOD PRESSURE REST: 146/80 MAXIMUM HEART RATE ACHIEVED: 97 MAXIMUM BLOOD PRESSURE: 158/76 85% MPHR: 131 100% MPHR: 154 METS: N/A INDICATIONS: Evaluate for CAD in a patient who presented with angina. CLINICAL INFORMATION: Baseline EKG revealed normal sinus rhythm without significant ST-T changes. With Lexiscan administration, heart rate changed from 62 to 97 beats per minute and blood pressure changed from 146/80 to 158/76. EKG was unremarkable. Patient did not have any significant symptoms. By EKG criteria, this is unremarkable Lexiscan stress test. The nuclear scan results which are more pertinent will be reported by the radiologist. MMCHERRI / HAILEN: [id number] /
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
== END 2021-02-24 15:37 | disposition home or self-care (01) | DRG 303 ==
LOC: EC 15:11 → 3SCARD 18:24
PROVIDERS: ADMIT Hospitalist; ATTEND Hospitalist
DX: I25.110 Atherosclerotic heart disease of native coronary artery with unstable angina pectoris (principal); E87.1 Hypo-osmolality and hyponatremia; J44.1 Chronic obstructive pulmonary disease with (acute) exacerbation; I25.10 Atherosclerotic heart disease of native coronary artery without angina pectoris; Z95.5 Presence of coronary angioplasty implant and graft; Z79.51 Long term (current) use of inhaled steroids; E78.5 Hyperlipidemia, unspecified; Z20.822 Contact with and (suspected) exposure to COVID-19; Z85.828 Personal history of other malignant neoplasm of skin; I25.2 Old myocardial infarction; F17.210 Nicotine dependence, cigarettes, uncomplicated; K21.9 Gastro-esophageal reflux disease without esophagitis; M19.90 Unspecified osteoarthritis, unspecified site; R51.9 Headache, unspecified; M54.2 Cervicalgia; J20.9 Acute bronchitis, unspecified
CPT/HCPCS: 36415; 70450; 70490; 71045; 71275; 78452; 80048; 80053; 80061; 80306; 81003; 82728; 83690; 83735; 84145; 84484; 85025; 85379; 85610; 85652; 85730; 86140; 87635; 93005; 93017; 93306; 94640; 99285

== ENCOUNTER → 2021-10-08 | Outpatient (CLI) | payer MEDICARE ==
[2021-10-08 11:10] LABS: HCT 43.5 % (39.0-53.0); HGB 14.6 gm/dL (13.0-17.5); MCH 32.4 pg (25.0-35.0); MCHC 33.5 g/dL (31.0-37.0); MCV 96.7 fL (80.0-100.0); Mean Platelet Volume 7.2; Platelet Count 209 k/uL (150-450); RDW 12.1 % (11.5-15.5)
[2021-10-08 11:19] LABS: Partial Thromboplastin Time 24.4 sec (22.0-30.0); Prothrombin Time 10.3 sec (9.0-12.0)
[2021-10-08 11:24] LABS: ALT 19 U/L (4-49); AST 25 U/L (17-59); African American GFR (CKD) >90 (>60 ml/min/1.73 sqM); Albumin 3.4 g/dL (3.5-5.0); Alkaline Phosphatase 75 U/L (38-126); Anion Gap 4 mmol/L; Blood Urea Nitrogen 17 mg/dL (9-20); Calcium 9.4 mg/dL (8.4-10.2); Carbon Dioxide 25 mmol/L (22-30); Chloride 106 mmol/L (98-107); Glucose 123 mg/dL (74-99); Non-African American GFR(CKD) >90 (>60 ml/min/1.73 sqM); Potassium 4.4 mmol/L (3.5-5.1); Sodium 135 mmol/L (137-145); Total Bilirubin 0.7 mg/dL (0.2-1.3); Total Protein 6.3 g/dL (6.3-8.2)
[2021-10-08 11:42] LABS: Appearance,Urine Clear (Clear); Bilirubin,Urine Negative (Negative); Blood,Urine Negative (Negative); Color,Urine Yellow; Glucose,Urine (UA) Negative (Negative); Ketones,Urine Negative (Negative); Leukocyte Esterase,Urine Negative (Negative); Nitrite,Urine Negative (Negative); Protein,Urine Negative (Negative); Specific Gravity,Urine 1.021 (1.001-1.035); Urobilinogen,Urine <2.0 mg/dL (<2.0)
== END | disposition home or self-care (01) ==
LOC: LABWHC1 10:02
PROVIDERS: ATTEND Orthopaedic Surgery
DX: Z01.812 Encounter for preprocedural laboratory examination (principal)
CPT/HCPCS: 80053; 81003; 85027; 85610; 85730; 86850; 86900; 86901; 87070

== ENCOUNTER 2021-10-19 05:38 | Day surgery (SDC) | payer MEDICARE ==
[2021-10-14 15:34] VITALS: BMI 25.8
[~2021-10-19 05:38] MED LIST: ACETAMINOPHEN TAB 500 MG TAB PO PRN; GABAPENTIN 300 MG CAP PO PRN; MELOXICAM 7.5 MG TAB PO PRN; ROPIVACAINE/EPI/CLONIDINE/KET 50 ML SYRINGE MISCELLANE PRN; TRANEXAMIC ACID 1,000 MG in SODIUM CHLORIDE 0.9% 100 ML IVPB PRN
[2021-10-19] MEDS ORDERED: LACTATED RINGERS 1,000 ML IV SCH (05:40)
[2021-10-19] MEDS ORDERED: LIDOCAINE 1% (10MG/ML) FOR IV START INTRADERMA PRN (05:40)
[2021-10-19] MEDS ORDERED: ONDANSETRON 4 MG/2 ML VIAL IVP ONE (05:40)
[2021-10-19] MEDS ORDERED: DEXAMETHASONE SOD PHOSPHATE 4 MG/ML 1 ML VIAL IV ONE (06:17)
[2021-10-19] MEDS ORDERED: HYDROmorphone (PF) 1 MG/ML ONE (06:58)
[2021-10-19] MEDS ORDERED: ePHEDrine 50 MG/ML 1 ML AMP ONE (06:58)
[2021-10-19] MEDS ORDERED: NEOSTIGMINE 1 MG/ML 10 ML VIAL ONE (06:58)
[2021-10-19] MEDS ORDERED: fentaNYL (PF) 50 MCG/ML 2 ML AMP ONE (06:58)
[2021-10-19] MEDS ORDERED: GLYCOPYRROLATE 0.2 MG/ML 2 ML VIAL ONE (06:58)
[2021-10-19] MEDS ORDERED: PHENYLEPHRINE-0.9% NACL SYG 1,000 MCG/10 ML SYRINGE ONE (06:58)
[2021-10-19] MEDS ORDERED: SUCCINYLCHOLINE CHLORIDE 100 MG/5 ML SYR IV ONE (06:58)
[2021-10-19] MEDS ORDERED: SODIUM CHLORIDE 0.9% IRRIG 1,000 ML BTL IRRIGATION ONE (06:58)
[2021-10-19] MEDS ORDERED: ROCURONIUM 10 MG/ML (5 ML VIAL) IV ONE (06:58)
[2021-10-19] MEDS ORDERED: PROPOFOL 10 MG/ML 20 ML VIAL IV ONE (06:58)
[2021-10-19] MEDS ORDERED: LIDOCAINE 1% INJ 10MG/ML (20 ML MDV) ONE (06:58)
[2021-10-19] MEDS ORDERED: MIDAZOLAM 2 MG/2 ML VIAL ONE (06:58)
[2021-10-19] MEDS ORDERED: TRANEXAMIC ACID 1,000 MG/10 ML VIAL ONE (06:58)
[2021-10-19] MEDS ORDERED: HEPARIN SODIUM,PORCINE 10,000 UNIT/ML 1 ML VIAL ONE (06:58)
[2021-10-19] MEDS ORDERED: SODIUM CHLORIDE 0.9% 100 ML BAG ONE (06:58)
[2021-10-19] MEDS ORDERED: ceFAZolin 1,000 MG in SODIUM CHLORIDE 0.9% 1,000 ML IRRIGATION ONE (07:58)
[2021-10-19] MEDS ORDERED: LACTATED RINGERS 1,000 ML IV ONE (08:22)
--- NOTE | 2021-10-19 08:27 | P.OP ---
Date of Procedure: 10/19/21 Preoperative Diagnosis: Severe osteoarthritis left hip Postoperative Diagnosis: Severe osteoarthritis left hip Procedure(s) Performed: The total of arthroplasty with a direct anterior approach Implants: [employer] Polarstem standard size 9 collar [employer] R3, 3 hole hemispherical acetabular shell, 54 mm [employer] Reflection 6.5 mm cancellus screw, 20 mm, 25 mm [employer] R3, XLPE 20 acetabular liner [employer] Oxinium femoral head 36 m, +4 All components were press-fit. The articulation is Oxinium on polyethylene. Anesthesia: GETA Surgeon: Jerzy Meneses Launch Manager #1: Dheeraj Madera Estimated Blood Loss (ml): 100 Pathology: other (Femoral head) Condition: stable Disposition: PACU Indications for Procedure: After failure of conservative treatment we discussed the surgical and nonsurgic al treatment options at length. Patient wishes to proceed with a total hip arthroplasty with a direct anterior approach. Complications specific to this procedure were discussed at length, including but not limited to infection, leg length discrepancy, dislocation, nerve injury, and fracture. Covid-19 was also discussed at length with the patient, and they are aware of the current policies and procedures. The patient was given the option of delaying surgery, but they elect to proceed knowing these risks. Patient is aware of all these complications and informed consent was obtained Operative Findings: The operative findings are consistent with severe osteoarthritis of the left hip Description of Procedure: Patient was seen and evaluated in the preoperative area and the consent was reviewed. The operative site was marked with a skin marker. The patient was then brought to the operating room and given preoperative antibiotics intravenously. 1 g of Tranexamic acid was also given intravenously. A general anesthetic was administered by the anesthesia department. The patient was then placed on the [place] table with the bony prominences well-padded. The hip area was then prepped with a ChloraPrep solution and draped in the usual sterile fashion. A universal timeout was then performed, which confirmed the patient's name, surgical site, ALLERGIES, and procedure being performed on the consent. Next the incision site was located at 1 cm distal and 2 cm lateral to the anterior superior iliac spine. The skin and subcutaneous tissues were sharply incised. Incision was carefully dissected down to the fascia overlying the tensor fascia rebeca muscle. This fascia was then incised in line with the incision. Care was taken to stay laterally in order to avoid injuring the lateral femoral cutaneous nerve. Next, using blunt finger dissection, the tensor fascia rebeca muscle was dissected off its investing fascia. The muscle was then carefully retracted laterally with a cobra retractor over the lateral neck of the femur. Next, the circumflex vessels were identified and cauterized using the AquaMantis device. The anterior hip capsule was then exposed. The capsule was then opened and an inverted T fashion. Cobra retractors were then placed intracapsularly. The retractors were maintained intracapsular throughout the procedure. The proximal femur was then visualized. Fluoroscopic x-rays were then taken in order to evaluate the preoperative leg lengths. A small amount of traction was placed on the leg. The femoral neck was then osteotomized appropriate level above the lesser trochanter. A small wedge of bone was then removed from the remaining femoral head. Next, using a corkscrew the femoral head was removed from the acetabulum. On gross visual inspection, the femoral head had complete loss of articular cartilage and multiple periarticular osteophytes. The femoral head was then measured. Attention was then turned to the acetabulum. The acetabulum was exposed and any remaining labrum was excised. Sequential reaming of the acetabulum was performed using fluoroscopic guidance until there was a good bed of bleeding cancellus bone. When the appropriate size was reached, a trial was then placed. The position and fit of the trial was checked with fluoroscopy. The trial was then removed. Then, using fluoroscopic guidance, the final implant was impacted at 20 of anteversion and 40 of abduction, and fully seated in the acetabulum. 2 screws were then placed in the acetabulum. Again fluoroscopy was used to check position of the screws. Next, the liner was then impacted, with a 20 elevated liner located in the anterior superior quadrant. Component locking was confirmed. Attention was then directed to the femur. With the aid of the [place] table, the femur was externally rotated to approximately 130, extended, and adducted under the opposite leg. A side hook was then placed under the proximal femur, and the side hook elevator was used to elevate the proximal femur while releasing the capsule. Retractors were then placed. A capsular release was performed, as well as a release of the conjoined tendon, which afforded excellent visualization of the proximal femur. Next, a box osteotome was used to lateralize the proximal femur. A delivery merchandiser was then used to locate the femoral canal. Sequential broaching was then performed with appropriate size which afforded excellent fixation in the proximal femur. A trial was then placed with appropriate head and neck, and the hip was gently reduced with the aid of the [place] table. Fluoroscopy was then used to check position of the components, as well as to ensure equal leg lengths. The hip was then gently dislocated and the trials were then removed. Final implants were then impacted and the hip was again reduced. Final fluoroscopic x-rays confirmed that the components were in anatomic position, as well as equal leg lengths. The hip was also taken through range of motion, and found to be stable. The hip was then copiously irrigated with antibiotic solution with pulsatile lavage. The hip was then irrigated with Irrisept solution. The soft tissues were then injected with a ropivacaine solution, which consisted of 246.25 mg of ropivacaine, 0.5 mg of epinephrine, 30 mg of Toradol, 80 g of clonidine, and 48.45 mL of sterile water, for a total of 100 mL of fluid injected. A second dose of 1 g of Tranexamic acid was also given intravenously. Any blood collected by Cell Saver was then returned to the patient at this time. The fascia was then closed with 2-0 strata fix suture. The subcutaneous tissue was closed with 3-0 Vicryl. The subcuticular tissue was closed with 3-0 strata fix suture. The skin was then closed with Exofin skin glue. After the glue and dried, and Optifoam silver impregnated dressing was applied. The patient was then transferred to the recovery room in stable condition. The physician assistant certified NATALIE Jay was required due to the complexity of surgery, and the need for skilled surgical scrub tech for positioning, draping, exposure, retraction, and closure of the wound.
--- NOTE | 2021-10-19 08:35 | XR ---
EXAMINATION TYPE: XR Hip Limited LT DATE OF EXAM: 10/19/2021 CLINICAL HISTORY: Left hip pain and osteoarthritis. TECHNIQUE: Single AP portable view of left hip is obtained immediately postoperatively. COMPARISON: None. FINDINGS: Metallic hardware from left hip arthroplasty is seen and appears satisfactory in alignment and position. There is evidence of recent surgery with subcutaneous gas noted laterally. IMPRESSION: Metallic hardware from left hip arthroplasty is satisfactory in position.
[2021-10-19] MEDS ORDERED: NALOXONE 0.4 MG/ML 1 ML VIAL IV PRN (08:55)
--- NOTE | 2021-10-19 08:55 | FL ---
Fluoroscopy History: TOTAL LT ANTERIOR HIP TOTAL LT ANTERIOR HIP . 28 SEC FL TIME. 3 PICS ON HIP REQUEST
[2021-10-19] MEDS ORDERED: HYDROcodone/APAP 7.5-325MG 1 EACH TAB PO PRN (08:56)
[2021-10-19] MEDS ORDERED: ONDANSETRON 4 MG/2 ML VIAL IVP PRN (08:56)
[2021-10-19] MEDS ORDERED: HYDROcodone/APAP 5-325MG 1 EACH TAB PO PRN (08:56)
[2021-10-19] MEDS ORDERED: MAGNESIUM HYDROXIDE 2,400 MG/10 ML CUP PO PRN (08:56)
[2021-10-19] MEDS ORDERED: HYDROmorphone 0.5 MG/0.5 ML SYRINGE IVP PRN ×2 (08:56)
[2021-10-19] MEDS ORDERED: SODIUM CHLORIDE 0.9% 1,000 ML IV SCH (09:00)
[2021-10-19 09:01] VITALS: TEMP 97.2
[2021-10-19] MEDS: HYDROmorphone 0.5 MG/0.5 ML SYRINGE IVP PRN ×4 (09:01→09:20)
--- NOTE | 2021-10-19 09:10 | XR ---
EXAMINATION TYPE: XR Hip Limited LT DATE OF EXAM: 10/19/2021 CLINICAL HISTORY: Postoperative evaluation TECHNIQUE: Single portable view of the left hip was submitted. FINDINGS: Noted are changes of total hip arthroplasty with femoral and acetabular components appearin g well seated. Alignment is anatomic. Postsurgical soft tissue changes are evident. IMPRESSION: Satisfactory postoperative alignment
[2021-10-19] MEDS ORDERED: diphenhydrAMINE 50 MG/ML 1 ML VIAL ONE (09:16)
[2021-10-19] MEDS ORDERED: diphenhydrAMINE 50 MG/ML 1 ML VIAL IVP ONE (09:21)
[2021-10-19 11:28] VITALS: RESP 16
[2021-10-19 14:29] VITALS: BP 135/82; PULSE 65
[2021-10-19] MEDS ORDERED: ASPIRIN 325 MG TAB PO SCH (21:00)
[2021-10-19] MEDS ORDERED: SENNOSIDES-DOCUSATE SODIUM 1 EACH TAB PO SCH (21:00)
== END 2021-10-19 14:21 | disposition home health service (06) ==
LOC: OR 05:38
PROVIDERS: ATTEND Orthopaedic Surgery
DX: M16.12 Unilateral primary osteoarthritis, left hip (principal); I25.10 Atherosclerotic heart disease of native coronary artery without angina pectoris; I11.9 Hypertensive heart disease without heart failure; K21.9 Gastro-esophageal reflux disease without esophagitis; E78.2 Mixed hyperlipidemia; F32.A Depression, unspecified; F41.9 Anxiety disorder, unspecified; E78.00 Pure hypercholesterolemia, unspecified; F17.210 Nicotine dependence, cigarettes, uncomplicated; J44.9 Chronic obstructive pulmonary disease, unspecified; Z97.2 Presence of dental prosthetic device (complete) (partial); Z97.3 Presence of spectacles and contact lenses; Z95.5 Presence of coronary angioplasty implant and graft; I25.2 Old myocardial infarction; Z98.1 Arthrodesis status; Z98.890 Other specified postprocedural states; Z79.82 Long term (current) use of aspirin; Z79.899 Other long term (current) drug therapy; Z79.51 Long term (current) use of inhaled steroids
CPT/HCPCS: 27130; 97110; 97161; 88300; 73501; C1776; J2250; J1200; J1100; J2710; J0690 ×2; J2405; J2001; J3010; J1170 ×2; J2370; J0330; J2704; 86891

== ENCOUNTER 2022-06-06 08:05 | Emergency (ER) | payer MEDICARE ==
[2022-06-06 08:09] VITALS: TEMP 98
[2022-06-06 08:38] LABS: Basophils % (A) 1 %; Eosinophils # (A) 0.1 k/uL (0-0.7); Eosinophils % (A) 2 %; HCT 49.7 % (39.0-53.0); HGB 17.2 gm/dL (13.0-17.5); Lymphocytes # (A) 0.8 k/uL (1.0-4.8); Lymphocytes % (A) 16 %; MCH 33.2 pg (25.0-35.0); MCHC 34.6 g/dL (31.0-37.0); MCV 95.8 fL (80.0-100.0); Mean Platelet Volume 7.6; Monocytes # (A) 0.3 k/uL (0-1.0); Monocytes % (A) 6 %; Neutrophils # (A) 3.6 k/uL (1.3-7.7); Neutrophils % (A) 75 %; Platelet Count 196 k/uL (150-450); RBC 5.19 m/uL (4.30-5.90); RDW 12.9 % (11.5-15.5); WBC 4.9 k/uL (3.8-10.6)
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
[2022-06-06 08:50] LABS: Albumin 4.3 g/dL (3.5-5.0); Calcium 9.4 mg/dL (8.4-10.2); Potassium 4.8 mmol/L (3.5-5.1); Total Bilirubin 0.8 mg/dL (0.2-1.3); Total Protein 7.6 g/dL (6.3-8.2)
[2022-06-06 08:55] LABS: Partial Thromboplastin Time 26.5 sec (22.0-30.0); Prothrombin Time 10.6 sec (9.0-12.0)
--- NOTE | 2022-06-06 09:03 | XR ---
EXAMINATION TYPE: XR chest 2V DATE OF EXAM: 06/06/2022 COMPARISON: Chest x-ray and CTA chest February 22, 2021 HISTORY: Difficulty in breathing. TECHNIQUE: Frontal and lateral views of the chest are obtained. FINDINGS: There is background chronic emphysematous change without suspicious new focal air space op acity, pleural effusion, or pneumothorax seen. The cardiac silhouette size is stable and within norm al limits. Multilevel spurring in the thoracic spine is redemonstrated. IMPRESSION: Chronic emphysematous change without acute pulmonary process. No significant change from recent prior studies.
[2022-06-06 10:06] VITALS: PULSE 59; RESP 18
--- NOTE | 2022-06-06 10:15 | CT ---
EXAMINATION TYPE: CT angio chest CT DLP: 514.7 mGycm, Automated exposure control for dose reduction was used. DATE OF EXAM: 06/06/2022 9:50 AM COMPARISON: CTA chest 02/22/2021, CT low-dose lung 10/21/2019. CLINICAL INDICATION:Male, 66 years old with history of carmen/cp; Difficulty breathing and chest pain. TECHNIQUE/CONTRAST: CTA scan of the thorax is performed with IV Contrast, patient injected with 80ml mL of Isovue 370, pu lmonary embolism protocol. MIP images are created and reviewed. FINDINGS: Pulmonary Artery: There is no evidence for a filling defect within the pulmonary vasculature to sugge st acute pulmonary embolism. The pulmonary artery is of normal size. Lungs/Pleura: No evidence of focal consolidation, pleural effusion or pneumothorax. Mild to moderate pulmonary bolus emphysema. Stable scattered bilateral pulmonary nodules from prior examination 2018. Largest nodule in the left lower lobe measures 7 mm (series 401, image 117). Largest nodule in the right lower lobe measures 8 mm (series 401, image 108). Airway: Large airways are patent. Heart: Heart is within normal limits for size. No pericardial effusion. Vasculature: No evidence of aortic aneurysm. Atherosclerotic calcification of the aorta. Coronary art kimi calcifications identified. Mediastinum: No gross evidence of adenopathy. Musculoskeletal: No acute osseous abnormalities Soft Tissues: Unremarkable. Lower neck: No significant findings. Upper Abdomen: No significant findings. IMPRESSION: 1. No evidence of pulmonary embolism. 2. Stable scattered pulmonary nodules from examination on 10/21/2019. 3. COPD changes.
[2022-06-06 11:31] VITALS: BP 109/78
== END 2022-06-06 11:32 | disposition home or self-care (01) ==
LOC: EC 08:05
DX: J44.1 Chronic obstructive pulmonary disease with (acute) exacerbation (principal); I10 Essential (primary) hypertension; I25.10 Atherosclerotic heart disease of native coronary artery without angina pectoris; I25.2 Old myocardial infarction; E78.5 Hyperlipidemia, unspecified; M19.90 Unspecified osteoarthritis, unspecified site; F17.200 Nicotine dependence, unspecified, uncomplicated; Z79.51 Long term (current) use of inhaled steroids; Z79.899 Other long term (current) drug therapy
CPT/HCPCS: 36415; 93005; 85379; 83880; 80053; 84484; 85025; 85610; 85730; 71046; 71275; 99285; Q9967

== ENCOUNTER 2022-11-29 10:02 | Day surgery (SDC) | payer MEDICARE ==
[2022-11-24 11:26] VITALS: BMI 27.9
[~2022-11-29 10:02] MED LIST changes: -ACETAMINOPHEN TAB 500 MG TAB PO PRN; -GABAPENTIN 300 MG CAP PO PRN; +LACTATED RINGERS 1,000 ML IV SCH; -MELOXICAM 7.5 MG TAB PO PRN; -ROPIVACAINE/EPI/CLONIDINE/KET 50 ML SYRINGE MISCELLANE PRN; -TRANEXAMIC ACID 1,000 MG in SODIUM CHLORIDE 0.9% 100 ML IVPB PRN
[2022-11-29 10:23] VITALS: TEMP 97.8
[2022-11-29] MEDS ORDERED: ALBUTEROL HFA INHALER INHALATION STA (10:38)
[2022-11-29] MEDS ORDERED: PROPOFOL 10 MG/ML 20 ML VIAL IV ONE (11:08)
--- NOTE | 2022-11-29 11:38 | P.PCN ---
Date of Procedure: 11/29/22 Procedure(s) Performed: PREOPERATIVE DIAGNOSIS: Rectal bleeding, change in bowel habits POSTOPERATIVE DIAGNOSIS: Diverticulosis, small hemorrhoids PROCEDURE: Colonoscopy ANESTHESIA: MAC SURGEON: Sedrick Hernandez M.D. SPECIMENS: None ENDOSCOPIC PROCEDURE: The patient was placed on the endoscopy table in the left decubitus position. The Olympus colonoscope was inserted into the anus and passed under direct visualization to the base of the cecum. The appendiceal orifice was visualized. From that point the scope was slowly withdrawn inspecting all surfaces carefully. There were no neoplastic inflammatory or polypoid lesions throughout the cecum, ascending, transverse, descending, sigmoid and rectum. There was moderate left-sided diverticulosis noted. At the anus the patient had small internal hemorrhoids noted. Digital rectal examination was normal. The patient was taken to the recovery room in stable condition per anesthesia guidelines. RECOMMENDATIONS: Resume diet. Increase fiber. Repeat colonoscopy 10 years.
[2022-11-29] MEDS ORDERED: LACTATED RINGERS 1,000 ML IV ONE (11:39)
[2022-11-29 11:41] VITALS: RESP 18
[2022-11-29 11:57] VITALS: BP 132/73; PULSE 54
== END 2022-11-29 12:09 | disposition home or self-care (01) ==
LOC: ORWHC2ENDO 10:02
PROVIDERS: ATTEND Surgery
DX: K57.30 Diverticulosis of large intestine without perforation or abscess without bleeding (principal); K64.8 Other hemorrhoids; I25.10 Atherosclerotic heart disease of native coronary artery without angina pectoris; I25.2 Old myocardial infarction; Z95.5 Presence of coronary angioplasty implant and graft; I10 Essential (primary) hypertension; E78.5 Hyperlipidemia, unspecified; J44.9 Chronic obstructive pulmonary disease, unspecified; F17.200 Nicotine dependence, unspecified, uncomplicated; Z79.51 Long term (current) use of inhaled steroids; Z79.01 Long term (current) use of anticoagulants; Z79.811 Long term (current) use of aromatase inhibitors; Z79.899 Other long term (current) drug therapy; F32.A Depression, unspecified; M19.90 Unspecified osteoarthritis, unspecified site; Z85.828 Personal history of other malignant neoplasm of skin; E78.00 Pure hypercholesterolemia, unspecified; Z96.649 Presence of unspecified artificial hip joint; Z98.890 Other specified postprocedural states; Z98.810 Dental sealant status
CPT/HCPCS: 45378; J2704

== ENCOUNTER → 2023-06-21 | Outpatient (CLI) | payer MEDICARE ==
--- NOTE | 2023-06-21 14:01 | CTL ---
EXAMINATION TYPE: CT Low Dose Lung DATE OF EXAM ORDERED: 06/21/2023 HISTORY: 67-year-old male Z12.2 ENCNTR SCREEN FOR MALIGNANT NEOPLASM OF RESP. Former smoker with 40 p ack-year history. Quit last year. Lung cancer screening CT DLP: 91.[address] CTDI: 2.3 mGy Automated exposure control for dose reduction was used. SCREENING VISIT: 4 year follow-up. COMPARISON: CTA chest 06/06/2022 TECHNIQUE: Low dose computed tomography scan was performed through the chest with coronal and sagitta l reconstructions. CT DIAGNOSTIC QUALITY: Satisfactory FINDINGS: The heart is normal size without pericardial effusion. Three-vessel coronary artery calcifications ar e present and are marker for coronary artery disease. Ectatic ascending aorta 3.6 cm. Mild atherosclerotic arch calcifications. Conventional arch vessel br anching anatomy. A few scattered nonenlarged mediastinal lymph nodes are present measuring up to 7 mm. No thoracic lym phadenopathy by CT size criteria. Borderline to mildly enlarged caliber to the main right and left pulmonary arteries up to 2.7 cm sugg esting underlying pulmonary arterial hypertension. There is moderate centrilobular and paraseptal emphysema with a bronchial wall thickening. Some assoc iated groundglass interstitial reticular change lateral right middle lobe. Scattered bilateral pulmonary nodules measuring 9 mm and smaller remains unchanged from 06/06/2022 com patible with a benign etiology. No consolidation or pleural effusion. Tiny hiatal hernia. Visualized upper abdomen shows mild stool burden. Bones: Extensive DISH throughout the mid and lower thoracic spine. IMPRESSION: 1. LungRADS 2, benign. Stable scattered pulmonary nodules measuring up to 9 mm. 2. COPD with moderate centrilobular and paraseptal emphysema. Possible underlying pulmonary hypertens ion. 3. CAD with 3 vessel coronary artery calcifications. CT LUNG RAD AND CT CHEST RECOMMENDATION: Lung-Rad 2 Benign Appearance or Behavior: Continue annual sc reening with LDCT in 12 months. S Modifier (other clinically significant findings): None
== END | disposition home or self-care (01) ==
LOC: RADCTMAIN 10:21
PROVIDERS: ATTEND Family Medicine
DX: Z12.2 Encounter for screening for malignant neoplasm of respiratory organs (principal); J43.2 Centrilobular emphysema; I25.10 Atherosclerotic heart disease of native coronary artery without angina pectoris; R91.8 Other nonspecific abnormal finding of lung field; Z87.891 Personal history of nicotine dependence
CPT/HCPCS: 71271

== ENCOUNTER 2024-01-22 13:07 | Emergency (ER) | payer MEDICARE ==
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
[2024-01-22] MEDS: methylPREDNISolone SOD SUCCI 125 MG/2 ML VIAL IV STA (13:48)
[2024-01-22 13:54] LABS: Basophils % (A) 1 %; Eosinophils # (A) 0.2 k/uL (0-0.7); Eosinophils % (A) 2 %; HCT 47.1 % (39.0-53.0); HGB 15.9 gm/dL (13.0-17.5); Lymphocytes # (A) 1.5 k/uL (1.0-4.8); Lymphocytes % (A) 17 %; MCH 31.4 pg (25.0-35.0); MCHC 33.7 g/dL (31.0-37.0); MCV 93.1 fL (80.0-100.0); Mean Platelet Volume 7.5; Monocytes # (A) 0.4 k/uL (0-1.0); Monocytes % (A) 5 %; Neutrophils # (A) 6.3 k/uL (1.3-7.7); Neutrophils % (A) 74 %; Platelet Count 309 k/uL (150-450); RBC 5.06 m/uL (4.30-5.90); RDW 12.5 % (11.5-15.5); WBC 8.6 k/uL (3.8-10.6)
[2024-01-22 14:04] LABS: ALT 22 U/L (4-49); AST 27 U/L (17-59); African American GFR (CKD) 72 (>60 ml/min/1.73 sqM); Albumin 4.1 g/dL (3.5-5.0); Alkaline Phosphatase 79 U/L (38-126); Anion Gap 9 mmol/L; Blood Urea Nitrogen 20 mg/dL (9-20); Calcium 9.7 mg/dL (8.4-10.2); Carbon Dioxide 21 mmol/L (22-30); Chloride 106 mmol/L (98-107); Glucose 119 mg/dL (74-99); Magnesium 2.1 mg/dL (1.6-2.3); Non-African American GFR(CKD) 62 (>60 ml/min/1.73 sqM); Potassium 4.6 mmol/L (3.5-5.1); Sodium 136 mmol/L (137-145); Total Bilirubin 0.7 mg/dL (0.2-1.3)
[2024-01-22 14:07] LABS: Partial Thromboplastin Time 24.9 sec (22.0-30.0); Prothrombin Time 10.7 sec (10.0-12.5)
[2024-01-22 14:09] VITALS: TEMP 98.5
[2024-01-22 14:13] LABS: NT-Pro-B-Type Natriuretic Pept 90 pg/mL
--- NOTE | 2024-01-22 14:20 | XR ---
EXAMINATION TYPE: XR chest 2V DATE OF EXAM: 01/22/2024 COMPARISON: 06/06/2022 INDICATION: History of lung nodule, short of breath TECHNIQUE: Frontal and lateral views of the chest are obtained. FINDINGS: The heart size is normal. The pulmonary vasculature is normal. There is a 2.7 x 1.8 cm oval density left lower lobe overlying the rib. This is larger than the nodul e identified on the low-dose CT chest May [address] chest is recommended. IMPRESSION: 1. No suspicious acute infiltrates. 2. Suspected large nodule left base versus osseous abnormality of the posterior lateral rib area CT c hest recommended for additional evaluation
[2024-01-22] MEDS: IPRATROPIUM-ALBUTEROL 3 ML NEB INHALATION STA (14:57)
[2024-01-22 15:42] VITALS: BP 148/77; PULSE 66; RESP 18
== END 2024-01-22 15:28 | disposition home or self-care (01) ==
LOC: EC 13:07
DX: J44.1 Chronic obstructive pulmonary disease with (acute) exacerbation (principal); R91.1 Solitary pulmonary nodule; I10 Essential (primary) hypertension; I25.10 Atherosclerotic heart disease of native coronary artery without angina pectoris; I25.2 Old myocardial infarction; E78.5 Hyperlipidemia, unspecified; F17.200 Nicotine dependence, unspecified, uncomplicated; Z95.1 Presence of aortocoronary bypass graft; Z79.82 Long term (current) use of aspirin; Z79.51 Long term (current) use of inhaled steroids; Z79.899 Other long term (current) drug therapy
CPT/HCPCS: 36415; 94640; 93005; 85379; 83880; 80053; 83605; 83735; 84484; 85025; 85610; 85730; 71046; 99285; 96374; J2930

== ENCOUNTER 2024-02-11 10:57 | Inpatient (IN) | payer MEDICARE ==
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
[2024-02-11] MEDS: ACETAMINOPHEN TAB 500 MG TAB PO STA (11:39)
[2024-02-11] MEDS: methylPREDNISolone SOD SUCCI 125 MG/2 ML VIAL IV STA (11:39)
[2024-02-11] MEDS: IBUPROFEN 600 MG TAB PO STA (11:40)
[2024-02-11] MEDS: SODIUM CHLORIDE 0.9% 500 ML 500 ML IV STA (11:42)
[2024-02-11 11:51] LABS: Basophils # (A) 0.1 k/uL (0-0.2); Basophils % (A) 1 %; Eosinophils # (A) 0.1 k/uL (0-0.7); Eosinophils % (A) 1 %; HCT 45.9 % (39.0-53.0); HGB 15.5 gm/dL (13.0-17.5); Lymphocytes # (A) 0.4 k/uL (1.0-4.8); Lymphocytes % (A) 4 %; MCH 32.3 pg (25.0-35.0); MCHC 33.6 g/dL (31.0-37.0); MCV 96.1 fL (80.0-100.0); Mean Platelet Volume 8.2; Monocytes # (A) 0.6 k/uL (0-1.0); Monocytes % (A) 6 %; Neutrophils # (A) 9.3 k/uL (1.3-7.7); Neutrophils % (A) 87 %; Platelet Count 229 k/uL (150-450); RBC 4.78 m/uL (4.30-5.90); RDW 12.7 % (11.5-15.5); WBC 10.6 k/uL (3.8-10.6)
[2024-02-11 12:00] LABS: ALT 23 U/L (4-49); AST 30 U/L (17-59); African American GFR (CKD) 52 (>60 ml/min/1.73 sqM); Albumin 3.8 g/dL (3.5-5.0); Alkaline Phosphatase 72 U/L (38-126); Anion Gap 8 mmol/L; Blood Urea Nitrogen 28 mg/dL (9-20); Calcium 8.7 mg/dL (8.4-10.2); Carbon Dioxide 24 mmol/L (22-30); Chloride 99 mmol/L (98-107); Glucose 189 mg/dL (74-99); Non-African American GFR(CKD) 45 (>60 ml/min/1.73 sqM); Potassium 4.7 mmol/L (3.5-5.1); Sodium 131 mmol/L (137-145); Total Bilirubin 1.3 mg/dL (0.2-1.3); Total Protein 6.8 g/dL (6.3-8.2)
--- NOTE | 2024-02-11 12:03 | XR ---
EXAMINATION TYPE: XR chest 2V DATE OF EXAM: 02/11/2024 11:54 AM CLINICAL INDICATION:Male, 68 years old with history of difficulty breathing; [facility] COMPARISON: Chest radiographs from 01/22/2024 TECHNIQUE: XR chest 2V Frontal and lateral views of the chest. FINDINGS: Lungs/Pleura: There is no evidence of pleural effusion, focal consolidation, or pneumothorax. Pulmonary vascularity: Unremarkable. Heart/mediastinum: Cardiomediastinal silhouette is unremarkable. Musculoskeletal: No acute osseous pathology. IMPRESSION: No acute cardiopulmonary disease/process.
[2024-02-11 12:36] LABS: Partial Thromboplastin Time 25.6 sec (22.0-30.0); Prothrombin Time 11.3 sec (10.0-12.5)
[2024-02-11] MEDS: IPRATROPIUM 0.5 MG/2.5 ML NEBU INHALATION STA (12:47)
[2024-02-11] MEDS: ALBUTEROL NEBULIZED 2.5 MG/3 ML INHALATION STA (12:47)
[2024-02-11] MEDS ORDERED: NALOXONE 0.4 MG/ML 1 ML VIAL IVP PRN (13:23)
[2024-02-11] MEDS ORDERED: IPRATROPIUM-ALBUTEROL 3 ML NEB INHALATION PRN (13:23)
[2024-02-11] MEDS: cefTRIAXone IN SWFI 1,000 MG/10 ML SYRINGE IVP STA ×2 (13:49→13:50)
[2024-02-11] MEDS ORDERED: NON FORMULARY DRUG (Albuterol Inhaler 90 MCG Puff) INHALATION PRN (15:07)
[2024-02-11] MEDS: IPRATROPIUM-ALBUTEROL 3 ML NEB INHALATION SCH (16:03)
[2024-02-11] MEDS: methylPREDNISolone SOD SUCCI 125 MG/2 ML VIAL IV SCH (18:16)
[2024-02-11] MEDS: lisinopriL 20 MG TAB PO SCH (18:17)
[2024-02-11] MEDS: ACETAMINOPHEN TAB 500 MG TAB PO PRN (18:17)
[2024-02-11] MEDS: SODIUM CHLORIDE 0.9% 1,000 ML IV SCH (20:39)
[2024-02-11] MEDS: OSELTAMIVIR 75 MG CAP PO SCH (22:18)
[2024-02-11] MEDS: ATORVASTATIN 20 MG TAB PO SCH (22:18)
[2024-02-12] MEDS ORDERED: NON FORMULARY DRUG (Ubidecarenone [Coenzyme Q10] 50 MG Capsule) PO SCH (08:30)
[2024-02-12] MEDS: SYMBICORT 160-4.5 MCG INHALER INHALATION SCH (09:04)
[2024-02-12] MEDS: MULTIVITAMINS, THERA 1 EACH TAB PO SCH (09:45)
[2024-02-12] MEDS: hydroCHLOROthiazide 12.5 MG CAP PO SCH (09:45)
[2024-02-12] MEDS: ASPIRIN 81 MG PO SCH (09:45)
[2024-02-12] MEDS: CYANOCOBALAMIN 500 MCG TAB PO SCH (09:45)
[2024-02-12] MEDS: atenoloL 25 MG TAB PO SCH (09:46)
[2024-02-12] MEDS: amLODIPine 10 MG TAB PO SCH (09:46)
[2024-02-12] MEDS: HEPARIN SODIUM,PORCINE 5,000 UNIT/ML 1 ML VIAL SQ SCH (09:53)
[2024-02-12] MEDS ORDERED: RX INFO: IV CONTRAST WAS GIVEN 1 EACH MISC MISCELLANE PRN (10:04)
[2024-02-12 10:24] LABS: ALT 21 U/L (4-49); AST 23 U/L (17-59); African American GFR (CKD) 40 (>60 ml/min/1.73 sqM); Albumin 3.2 g/dL (3.5-5.0); Albumin/Globulin Ratio 1.1; Alkaline Phosphatase 67 U/L (38-126); Anion Gap 9 mmol/L; Blood Urea Nitrogen 48 mg/dL (9-20); Calcium 8.5 mg/dL (8.4-10.2); Carbon Dioxide 19 mmol/L (22-30); Chloride 104 mmol/L (98-107); Globulin 2.8 g/dL; Glucose 208 mg/dL (74-99); Non-African American GFR(CKD) 34 (>60 ml/min/1.73 sqM); Potassium 4.3 mmol/L (3.5-5.1); Sodium 132 mmol/L (137-145); Total Bilirubin 0.4 mg/dL (0.2-1.3)
[2024-02-12] MEDS: SENNOSIDES 8.6 MG TAB PO SCH (15:54)
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
--- NOTE | 2024-02-12 17:05 | P.PN ---
Subjective Progress Note Date: 02/12/24 Jomar Guerra, is a 68-year-old male who presented to [facility] with a chief complaint of worsening shortness of breath, cough and chest congestion He was evaluated in the emergency room vital examination on presentation revealed a temperature of 99.9 pulse 67 respiration 20 blood pressure 160/77 pulse ox 97% on 2 L nasal cannula Laboratory data reveals a white blood count of 10.6 hemoglobin 15.5 platelet count 229 BUN 28 creatinine 1.54 and lactic acid 3.1 Testing in the emergency room revealed chest x-ray did not reveal any acute cardiopulmonary process Patient was admitted to medical floor for further evaluation and treatment On 02/12/2024 patient was seen and examined on the medical floor he is alert and oriented 3 in no apparent distress he is still complaining of cough and shortness of breath otherwise he denies any complaints there is no fever or chills no headache or dizziness no chest pain no palpitation no nausea or vomiting no abdominal pain no diarrhea and no urinary symptoms Objective - Vital Signs Vital signs: Vital Signs Temp 98.1 F 02/12/24 13:48 Pulse 74 02/12/24 16:53 Resp 16 02/12/24 13:48 BP 119/71 02/12/24 13:48 Pulse Ox 96 02/12/24 13:48 FiO2 Intake & Output 02/11/24 02/12/24 02/12/24 18:59 06:59 18:59 Intake Total 480 Balance 480 Weight 90.718 kg Intake: Oral 480 Other: Voiding Method Toilet Toilet # Voids 1 4 - Exam In general patient is alert and oriented x 3 in no distress HEENT head normocephalic and atraumatic Neck is supple no JVD no goiter no lymphadenopathy no carotid bruit Chest examination reveals a crackles in both lung cesar with wheezing Cardiac exam reveals regular heart sounds S1 and S2 no gallops no murmurs Abdomen is soft nontender no organomegaly with normal bowel sounds Extremity exam reveals no edema no cyanosis or clubbing Neurological examination reveals no gross focal deficits - Labs CBC & Chem 7: 02/11/24 11:14 02/12/24 03:52 Labs: Abnormal Lab Results - Last 24 Hours (Table) 02/11/24 02/11/24 02/12/24 Range/Units 17:40 20:42 00:28 Sodium (137-145) mmol/L Carbon Dioxide (22-30) mmol/L BUN (9-20) mg/dL Creatinine (0.66-1.25) mg/dL Glucose (74-99) mg/dL Plasma Lactic Acid Yariel 3.5 H* 3.1 H* 2.8 H* (0.7-2.0) mmol/L Total Protein (6.3-8.2) g/dL Albumin (3.5-5.0) g/dL 02/12/24 Range/Units 03:52 Sodium 132 L (137-145) mmol/L Carbon Dioxide 19 L (22-30) mmol/L BUN 48 H (9-20) mg/dL Creatinine 1.95 H (0.66-1.25) mg/dL Glucose 208 H (74-99) mg/dL Plasma Lactic Acid Yariel (0.7-2.0) mmol/L Total Protein 6.0 L (6.3-8.2) g/dL Albumin 3.2 L (3.5-5.0) g/dL Assessment and Plan Plan: Acute exacerbation of chronic obstructive pulmonary disease Acute purulent bronchitis Acute influenza A infection Lactic acidosis Dehydration was acute kidney injury Underlying history of hypertension Underlying history of hyperlipidemia Remote history of coronary artery disease with history of stent placement 20 y ears ago At this time patient was seen and examined Home medications reviewed and reordered Patient was started on IV Solu-Medrol, IV ceftriaxone, and oral Tamiflu Pulmonary consultation requested Patient is requesting computed tomography scan of the chest due to prolonged history of smoking patient quit 1 year ago For DVT prophylaxis subcu heparin For GI prophylaxis Pepcid Will follow closely
--- NOTE | 2024-02-12 19:13 | CT ---
EXAMINATION TYPE: CT chest w con CT DLP: 445.6 mGycm, Automated exposure control for dose reduction was used. DATE OF EXAM: 02/12/2024 11:12 AM COMPARISON: CT chest 06/06/2022 Multiple CTs of the chest with most recent on . CLINICAL INDICATION:Male, 68 years old with history of Shortness of breath; PHH, SOB TECHNIQUE: Multiple axial images were obtained through the chest. Sagittal and coronal reformats were created for review. Contrast used:80 mL of Isovue 370 with IV Contrast (None if empty) Oral contrast used: (None if empty) FINDINGS: LUNGS/ PLEURA: Moderate emphysema. No focal airspace disease. Acquisition to image 46 of 74. 5 robert nary millimeter solid nodule is present in the left lower lobe laterally. AIRWAY: Patent and unremarkable. HEART: Size within normal limits. Moderately severe calcific coronary artery atherosclerotic disease. GREAT VESSELS: No PE. No aortic aneurysm or dissection. MEDIASTINUM: No gross evidence of adenopathy. VASCULATURE: No aortic aneurysm. MUSCULOSKELETAL: No acute osseous abnormalities. SOFT TISSUES/LYMPH NODES: Unremarkable. LOWER NECK: No significant findings. UPPER ABDOMEN: No significant findings. IMPRESSION: Moderately severe coronary artery disease. Severe emphysema. Single solid or multiple solid nodules less than 6 mm, CT follow-up in 12 months Follow up recommendations for incidental pulmonary nodules, if there are any, are per [employer]s [employer] or [employer]. [email or web address]
[2024-02-12] MEDS: OSELTAMIVIR 30 MG CAP PO SCH (21:18)
[2024-02-13 07:50] VITALS: RESP 18
[2024-02-13 08:54] LABS: Basophils # (A) 0.01 X 10*3/uL (0.00-0.10); Basophils % (A) 0.1 %; Eosinophils # (A) 0 X 10*3/uL (0.04-0.35); Eosinophils % (A) 0 %; HCT 37.2 % (39.6-50.0); HGB 12.7 g/dL (13.0-17.0); Lymphocytes # (A) 0.37 X 10*3/uL (0.90-5.00); Lymphocytes % (A) 2.1 %; MCHC 34.1 g/dL (32.0-37.0); MCV 93.7 FL (80.0-97.0); Mean Platelet Volume 9.6 FL (9.5-12.2); Monocytes # (A) 0.47 X 10*3/uL (0.20-1.00); Monocytes % (A) 2.7 %; NRBC Per 100 WBC 0 X 10*3/uL (0.00-0.01); Neutrophils # (A) 16.53 X 10*3/uL (1.80-7.70); Neutrophils % (A) 94.5 %; Platelet Count 204 X 10*3/uL (140-440); RBC 3.97 X 10*6/uL (4.40-5.60); RDW 12.7 % (11.5-14.5); WBC 17.49 X 10*3/uL (4.50-10.00)
--- NOTE | 2024-02-13 09:15 | P.PN ---
Subjective Progress Note Date: 02/13/24 Jomar Guerra, is a 68-year-old male who presented to [facility] with a chief complaint of worsening shortness of breath, cough and chest congestion He was evaluated in the emergency room vital examination on presentation revealed a temperature of 99.9 pulse 67 respiration 20 blood pressure 160/77 pulse ox 97% on 2 L nasal cannula Laboratory data reveals a white blood count of 10.6 hemoglobin 15.5 platelet count 229 BUN 28 creatinine 1.54 and lactic acid 3.1 Testing in the emergency room revealed chest x-ray did not reveal any acute cardiopulmonary process Patient was admitted to medical floor for further evaluation and treatment On 02/12/2024 patient was seen and examined on the medical floor he is alert and oriented 3 in no apparent distress he is still complaining of cough and shortness of breath otherwise he denies any complaints there is no fever or chills no headache or dizziness no chest pain no palpitation no nausea or vomiting no abdominal pain no diarrhea and no urinary symptoms on 02/13/2024 patient alert and oriented 3. Patient reports significant improvement. Patient remains on Tamiflu Cymetra Rocephin after breathing treatments. Discussed with nursing staff to assess for home oxygen. Current vital signs temp 97.8, heart rate 76, blood pressure 130/65 with a pulse ox of 97% on 2 L. Awaiting pulmonary clearance. Patient denies chest pain or short ness of breath. Patient denies nausea vomiting or diarrhea. Patient denies any urinary burning or frequency Objective - Vital Signs Vital signs: Vital Signs Temp 97.8 F 02/13/24 06:47 Pulse 82 02/13/24 08:31 Resp 18 02/13/24 06:47 BP 130/65 02/13/24 06:47 Pulse Ox 94 L 02/13/24 08:23 FiO2 Intake & Output 02/12/24 02/13/24 02/13/24 18:59 06:59 18:59 Intake Total 1730 Balance 1730 Intake: Intake, IV Titration 1250 Amount Sodium Chloride 0.9% 1, 1200 000 ml @ 100 mls/hr IV . Q10H [facility] Rx#:[id number] cefTRIAXone 2 gm In 50 Sodium Chloride 0.9% 50 ml @ 100 mls/hr IVPB Q24HR [facility] Rx#:[id number] Oral 480 Other: Voiding Method Toilet # Voids 5 3 - Exam In general patient is alert and oriented x 3 in no distress HEENT head normocephalic and atraumatic Neck is supple no JVD no goiter no lymphadenopathy no carotid bruit Chest examination reveals a crackles in both lung cesar with wheezing Cardiac exam reveals regular heart sounds S1 and S2 no gallops no murmurs Abdomen is soft nontender no organomegaly with normal bowel sounds Extremity exam reveals no edema no cyanosis or clubbing Neurological examination reveals no gross focal deficits - Labs CBC & Chem 7: 02/13/24 05:10 02/12/24 03:52 Labs: Abnormal Lab Results - Last 24 Hours (Table) 02/12/24 02/13/24 Range/Units 03:52 05:10 WBC 17.49 H (4.50-10.00) X 10*3/uL RBC 3.97 L (4.40-5.60) X 10*6/uL Hgb 12.7 L (13.0-17.0) g/dL Hct 37.2 L (39.6-50.0) % Immature Gran # 0.11 H (0.00-0.04) X 10*3/uL Neutrophils # 16.53 H (1.80-7.70) X 10*3/uL Lymphocytes # 0.37 L (0.90-5.00) X 10*3/uL Eosinophils # 0 L (0.04-0.35) X 10*3/uL Sodium 132 L (137-145) mmol/L Carbon Dioxide 19 L (22-30) mmol/L BUN 48 H (9-20) mg/dL Creatinine 1.95 H (0.66-1.25) mg/dL Glucose 208 H (74-99) mg/dL Total Protein 6.0 L (6.3-8.2) g/dL Albumin 3.2 L (3.5-5.0) g/dL Microbiology - Last 24 Hours (Table) 02/11/24 11:14 Blood Culture - Preliminary Blood Assessment and Plan Assessment: Acute exacerbation of chronic obstructive pulmonary disease Acute purulent bronchitis Acute influenza A infection Lactic acidosis Dehydration was acute kidney injury Underlying history of hypertension Underlying history of hyperlipidemia Remote history of coronary artery disease with history of stent placement 20 years ago At this time patient was seen and examined Home medications reviewed and reordered Patient was started on IV Solu-Medrol, IV ceftriaxone, and oral Tamiflu Pulmonary consultation requested Computed tomography scan of the chest completed and reviewed per pulmonary For DVT prophylaxis subcu heparin For GI prophylaxis Pepcid Will follow closely
[2024-02-13 09:25] LABS: BUN/Creat Ratio 32.75 Ratio (12.00-20.00); Blood Urea Nitrogen 39.3 mg/dL (9.0-27.0); Carbon Dioxide 21.1 mmol/L (21.6-31.8); Chloride 105 mmol/L (96-109); Glucose 193 mg/dL (70-110); Potassium 4.8 mmol/L (3.5-5.5); Sodium 137 mmol/L (135-145)
[2024-02-13 09:26] LABS: ALT 16 U/L (10-49); AST 19 U/L (14-35); Albumin 3.3 g/dL (3.8-4.9); Albumin/Globulin Ratio 1.65 Ratio (1.60-3.17); Alkaline Phosphatase 58 U/L (41-126); Calcium 8.3 mg/dL (8.7-10.3); Total Bilirubin 0.3 mg/dL (0.3-1.2); Total Protein 5.3 g/dL (6.2-8.2)
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
--- NOTE | 2024-02-13 14:59 | P.DS ---
Providers Date of admission: 02/11/24 13:24 Expected date of discharge: 02/13/24 Attending physician: Lynda Davis Consults: 02/12/24 10:05 Consult Physician Routine Consulting Provider: Yohan Lala Consult Reason/Comments: COPD Do you want consulting provider notified?: Yes Primary care physician: Lucina Perez [facility] Course: Diagnosis on discharge: Acute exacerbation of chronic obstructive pulmonary disease Acute purulent bronchitis Acute influenza A infection Lactic acidosis Dehydration was acute kidney injury Underlying history of hypertension Underlying history of hyperlipidemia Remote history of coronary artery disease with history of stent placement 20 years ago Hospital course: Jomar Guerra, is a 68-year-old male who presented to [facility] with a chief complaint of worsening shortness of breath, cough and chest congestion He was evaluated in the emergency room vital examination on presentation revealed a temperature of 99.9 pulse 67 respiration 20 blood pressure 160/77 pulse ox 97% on 2 L nasal cannula Laboratory data reveals a white blood count of 10.6 hemoglobin 15.5 platelet count 229 BUN 28 creatinine 1.54 and lactic acid 3.1 Testing in the emergency room revealed chest x-ray did not reveal any acute cardiopulmonary process Patient was admitted to medical floor for further evaluation and treatment On 02/12/2024 patient was seen and examined on the medical floor he is alert and oriented 3 in no apparent distress he is still complaining of cough and shortness of breath otherwise he denies any complaints there is no fever or chills no headache or dizziness no chest pain no palpitation no nausea or vomiting no abdominal pain no diarrhea and no urinary symptoms on 02/13/2024 patient alert and oriented 3. Patient reports significant improvement. Patient remains on Tamiflu, Rocephin after breathing treatments. Discussed with nursing staff to assess for home oxygen. Current vital signs temp 97.8, heart rate 76, blood pressure 130/65 with a pulse ox of 97% on 2 L. Awaiting pulmonary clearance. Patient denies chest pain or shortness of breath. Patient denies nausea vomiting or diarrhea. Patient denies any urinary burning or frequency Today patient failed pulmonary stress test, oxygen level dropped quickly below 90 after less than 2 minutes of walking, will arrange for home oxygen. Patient was evaluated by pulmonary and was cleared for discharge He was given prescription for Tamiflu for 3 more days, prescription for prednisone taper, and a prescription for DuoNeb updrafts or use Follow-up with primary care physician within one week Follow-up with pulmonary in 2-3 weeks Plan - Discharge Summary New Discharge Prescriptions: New predniSONE 10 mg PO DIRECTED 12 Days #30 tab Oseltamivir [Tamiflu] 75 mg PO Q12HR 3 Days #6 cap Ipratropium-Albuterol Nebulize [Duoneb 0.5 mg-3 mg/3 ml Soln] 3 ml INHALATION RT-QID 30 Days #120 each Continue atenoloL [Tenormin] 25 mg PO PC-BRKFST amLODIPine [Norvasc] 10 mg PO PC-BRKFST Albuterol Inhaler [Ventolin Hfa Inhaler] 2 puff INHALATION RT-QID PRN PRN Reason: Shortness Of Breath Ubidecarenone [Coenzyme Q10] 100 mg PO PC-BRKFST Fluticasone/Umeclidin/Vilanter [Trelegy Ellipta 200-62.5-25] 1 puff INHA LATION RT-DAILY Aspirin EC [Ecotrin Low Dose] 81 mg PO PC-BRKFST hydroCHLOROthiazide [Hydrodiuril] 12.5 mg PO PC-BRKFST Cyanocobalamin (Vitamin B-12) [Vitamin B-12] 1,000 mcg PO PC-BRKFST Atorvastatin [Lipitor] 20 mg PO HS Benazepril HCl 20 mg PO PC-BID Multivitamins, Thera [Multivitamin (formulary)] 1 tab PO PC-BRKFST Discharge Medication List atenoloL [Tenormin] 25 mg PO PC-BRKFST 10/11/14 [History] amLODIPine [Norvasc] 10 mg PO PC-BRKFST 04/23/19 [History] Benazepril HCl 20 mg PO PC-BID 02/22/21 [History] Albuterol Inhaler [Ventolin Hfa Inhaler] 2 puff INHALATION RT-QID PRN 11/29/22 [History] Aspirin EC [Ecotrin Low Dose] 81 mg PO PC-BRKFST 01/22/24 [History] Atorvastatin [Lipitor] 20 mg PO HS 01/22/24 [History] Cyanocobalamin (Vitamin B-12) [Vitamin B-12] 1,000 mcg PO PC-BRKFST 01/22/24 [History] Fluticasone/Umeclidin/Vilanter [Trelegy Ellipta 200-62.5-25] 1 puff INHALATION RT-DAILY 01/22/24 [History] Multivitamins, Thera [Multivitamin (formulary)] 1 tab PO PC-BRKFST 01/22/24 [History] Ubidecarenone [Coenzyme Q10] 100 mg PO PC-BRKFST 01/22/24 [History] hydroCHLOROthiazide [Hydrodiuril] 12.5 mg PO PC-BRKFST 01/22/24 [History] Ipratropium-Albuterol Nebulize [Duoneb 0.5 mg-3 mg/3 ml Soln] 3 ml INHALATION RT-QID 30 Days #120 each 02/13/24 [Rx] Oseltamivir [Tamiflu] 75 mg PO Q12HR 3 Days #6 cap 02/13/24 [Rx] predniSONE 10 mg PO DIRECTED 12 Days #30 tab 02/13/24 [Rx] Follow up Appointment(s)/Referral(s): Yohan Lala MD [STAFF PHYSICIAN] - 02/29/24 9:30 am Lucina Perez MD [Primary Care Provider] - 1-2 days
[2024-02-13 16:01] VITALS: BP 143/65; PULSE 70; TEMP 98
[2024-02-13] MEDS ORDERED: OSELTAMIVIR 75 MG CAP PO SCH (21:00)
== END 2024-02-13 16:37 | disposition home or self-care (01) | DRG 193 ==
LOC: EC 10:57 → 4SSUR 13:24
PROVIDERS: ADMIT Internal Medicine; ATTEND Internal Medicine
DX: J10.1 Influenza due to other identified influenza virus with other respiratory manifestations (principal); J96.01 Acute respiratory failure with hypoxia; J44.0 Chronic obstructive pulmonary disease with (acute) lower respiratory infection; J44.1 Chronic obstructive pulmonary disease with (acute) exacerbation; E87.20 Acidosis, unspecified; N17.9 Acute kidney failure, unspecified; Z87.891 Personal history of nicotine dependence; J20.9 Acute bronchitis, unspecified; I25.10 Atherosclerotic heart disease of native coronary artery without angina pectoris; G89.29 Other chronic pain; E78.5 Hyperlipidemia, unspecified; I25.2 Old myocardial infarction; I10 Essential (primary) hypertension; R91.8 Other nonspecific abnormal finding of lung field; M19.90 Unspecified osteoarthritis, unspecified site; M54.9 Dorsalgia, unspecified; J43.2 Centrilobular emphysema; E86.0 Dehydration; Z98.1 Arthrodesis status; Z60.2 Problems related to living alone; Z82.49 Family history of ischemic heart disease and other diseases of the circulatory system; Z79.82 Long term (current) use of aspirin; Z79.899 Other long term (current) drug therapy; Z11.52 Encounter for screening for COVID-19; Z28.21 Immunization not carried out because of patient refusal; Z95.5 Presence of coronary angioplasty implant and graft; Z90.49 Acquired absence of other specified parts of digestive tract; Z96.642 Presence of left artificial hip joint; Z85.828 Personal history of other malignant neoplasm of skin
CPT/HCPCS: 36415; 71046; 71260; 80053; 83605; 83735; 84484; 85025; 85379; 85610; 85730; 87040; 87636; 93005; 94640; 94760; 96361; 96374; 96375; 99291

== ENCOUNTER 2025-02-27 08:49 | Day surgery (SDC) | payer MEDICARE ==
[2025-02-25 11:24] VITALS: BMI 27.9
[~2025-02-27 08:49] MED LIST changes: +ALPRAZolam 0.25 MG TAB PO PRN; +ALPRAZolam 0.5 MG TAB PO PRN; +ATORVASTATIN 80 MG TAB PO STA; -LACTATED RINGERS 1,000 ML IV SCH; +NITROGLYCERIN SL TABS 0.4 MG TAB SUBLINGUAL PRN
[2025-02-27] MEDS: SODIUM CHLORIDE 0.9% 1,000 ML in EMPTY BAG 1 BAG IV ONE (09:02)
[2025-02-27] MEDS: ASPIRIN 325 MG TAB PO STA (09:03)
[2025-02-27] MEDS: IV FLUID CONTINUATION 1,000 ML IV ONE (09:09)
[2025-02-27 09:11] VITALS: RESP 16; TEMP 97.7
[2025-02-27] MEDS: MIDAZOLAM 2 MG/2 ML VIAL IVP ONE ×2 (10:45→11:38)
[2025-02-27] MEDS: LIDOCAINE 1% INJ 10MG/ML (20 ML MDV) SQ ONE (10:48)
[2025-02-27] MEDS: HEPARIN SODIUM,PORCINE (1 ML) 2,500 UNIT in SODIUM CHLORIDE 0.9% 250 ML IRRIGATION PRN (10:51)
[2025-02-27] MEDS: HEPARIN SODIUM,PORCINE 10,000 UNIT in SODIUM CHLORIDE 0.9% 1,000 ML IRRIGATION PRN (10:51)
[2025-02-27] MEDS: VERAPAMIL SYRINGE (5 MG/10 ML) INTRAARTER ONE (10:52)
[2025-02-27] MEDS: HEPARIN SODIUM 1,000 UN/ML (10ML VL) IVP ONE ×2 (10:56→11:53)
[2025-02-27] MEDS: TICAGRELOR 90 MG TAB PO ONE (11:13)
[2025-02-27] MEDS: IOPAMIDOL-370 100ML BTL INJ ONE ×2 (11:23→11:53)
[2025-02-27] MEDS: NITROGLYCERIN 1000MCG/10ML SYRINGE INTRACORON ONE (11:38)
[2025-02-27] MEDS ORDERED: MAG HYDROX/AL HYDROX/SIMETH 30 ML CUP PO PRN (12:11)
[2025-02-27] MEDS ORDERED: ZOLPIDEM 5 MG TAB PO PRN (12:11)
[2025-02-27] MEDS ORDERED: RX INFO: IV CONTRAST WAS GIVEN 1 EACH MISC MISCELLANE PRN (12:11)
[2025-02-27] MEDS ORDERED: ATROPINE SULFATE 0.1 MG/ML 10ML SYRINGE IV PRN (12:11)
[2025-02-27] MEDS ORDERED: SODIUM CHLORIDE 0.9% 1,000 ML in EMPTY BAG 1 BAG IV SCH (12:15)
--- NOTE | 2025-02-27 12:24 | P.CARDCATH ---
Date of Procedure: 02/27/25 Description of Procedure: History: Patient was referred for cardiac catheterization to evaluate for CAD. Procedure: #1 left heart catheterization and coronary angiography #2 intravascular ultrasound before and after PCI of circumflex coronary artery #3 PTCA and stenting with drug-eluting stent of proximal circumflex coronary artery #4 iFR assessment of the distal RCA lesion Procedure performed by: Dr. Igor Hernandez Clinical information: This is a 69-year-old gentleman with a known prior inferior CA in August 2009 when he had stenting of a proximal dominant RCA with a bare-metal stent. At that time he had a nondominant but a fair distribution circumflex vessel with a total occlusion of obtuse marginal which appeared to be chronic. LAD did not have significant disease. He quit smoking 3 years ago has significant COPD however and has been having symptoms strongly suggestive of angina and therefore he was advised coronary angiography and intervention based on findings. All details risks benefits options were explained. He understood all details and wished to proceed for the procedure Procedure Details: The risks, benefits, complications, treatment options, and expected outcomes were discussed with the patient. The patient and/or family concurred with the proposed plan, giving informed consent. Patient was brought to the cardiac cath tech after IV hydration was begun and oral premedication was given. Patient was further sedated with midazolam. Patient was prepped and draped in the usual manner. Under strict aseptic precautions and local anesthesia a 6 [place] Islander introducer was placed in the right radial artery. Using a JL 3/5 and a JR 4/0 catheters I performed coronary angiography and the same JR catheter was used to check LV pressures and LV gram was not performed. After the procedure was completed the sheaths and catheters were all removed. Hemostasis was achieved with TR band. Saturation in the fingers of the right hand was about 94%. Moderate conscious sedation time was 67 minutes. Patient's oxygen saturation hemodynamics and EKG were monitored closely. Findings: Hemodynamics: Left ventricle end-diastolic pressure was 11 mmHg without any gradient across aortic valve Left Main: Short patent vessel no significant disease bifurcates into LAD and circumflex LAD: Good caliber good distribution vessel minor irregularities no more than 30 to 35% narrowing large distribution vessel no significant disease CIRC: Technically nondominant vessel on the previous cath obtuse marginal was occluded but the rest of the vessel had no significant disease and now there is a proximal 80% eccentric narrowing before the origin of the first obtuse marginal branch. Following which there is a small obtuse marginal branch and the distal portion of the circumflex is not visualized. Proximal circumflex therefore has a new 80% eccentric lesion RCA: This was stented in 2008 with a bare-metal stent to the proximal vessel is widely patent. A very dominant vessel that has a lot of branches. Distally it gives off a larger PLV shorter smaller PDA. Before the origin of these 2 branches there is an eccentric 55% lesion which appears to be a borderline lesion in multiple views. LV: Not performed Closure Device: TR band Complications: None Estimated Blood Loss: Minimal Impression: This patient has normal filling pressures no gradient, right dominant system with widely patent RCA at the site of previous stenting in the proximal portion but distal RCA has 55% narrowing large PLV and relatively smaller PDA, nondominant circumflex has a known occlusion of circumflex marginal distally but now has a proximal 80% eccentric lesion. LAD has minor irreg ularities left main has no significant disease Pre Procedure Diagnosis: Unstable angina with multivessel disease Final Post Procedure Diagnosis: Significant CAD with proximal circumflex disease and moderate disease in dominant RCA. Recommendation: PCI of circumflex and IFR of RCA. Proceeded to perform in the same setting PCI procedure details: Initially used a JL 3.5 guide catheter but did not have good guide support I switched over to a CLS 3.5 guide with good support. A run- through wire was used to cross the lesion in the circumflex. Patient received a total of 6000 units of heparin and ACT was 279. He received 180 mg of Brilinta. He will be on aspirin and Brilinta combination for 1 year without interruption. I used a run-through wire to cross the lesion. I performed intravascular ultrasound and noted that the reference diameter was 2.5 mm. I predilated with a 2.5 caliber NC trek balloon and then deployed a 2.5 caliber 12 mm long Xience stent at 13 carmen. Excellent angiographic result was achieved. I went back and did a intravascular ultrasound and noted that the stent was fully expanded and was well opposed and the diameter was about 2.5 with a area of more than 5.0. I then proceeded to perform a IFR of RCA. I used a standard right [place] guide catheter. After appropriate calibration and normalization in the aorta of the Omni wire the wire was advanced and positioned in the distal portion of the PLV branch. Multiple recordings were obtained. iFR was 0.92, 0.92 and 0.91. Based on this information it was felt that even though there was a moderate lesion in the distal RCA it was not hemodynamically significant and therefore I did not perform any intervention. Results were discussed with the patient in detail. He will be on aspirin and Brilinta along with 80 mg of Lipitor. He will be discharged later on today and will be seen in the office in 1 week. Complications: None; patient tolerated the procedure well. Disposition: Pacu - hemodynamically stable. Condition: Stable Discharge Disposition: Discharge patient home later on today.
[2025-02-27] MEDS: ACETAMINOPHEN TAB 500 MG TAB PO STA (14:26)
[2025-02-27 19:06] VITALS: BP 121/72; PULSE 52
[2025-02-27] MEDS ORDERED: ATORVASTATIN 80 MG TAB PO SCH (21:00)
[2025-02-27] MEDS ORDERED: TICAGRELOR 90 MG TAB PO SCH (21:00)
[2025-02-28] MEDS ORDERED: CYANOCOBALAMIN 500 MCG TAB PO SCH (09:00)
[2025-02-28] MEDS ORDERED: MULTIVITAMINS, THERA 1 EACH TAB PO SCH (09:00)
[2025-02-28] MEDS ORDERED: NON FORMULARY DRUG (Ubidecarenone [Coenzyme Q10] 50 MG Capsule) PO SCH (09:00)
[2025-02-28] MEDS ORDERED: NON FORMULARY DRUG (Fluticasone/Umeclidin/Vilanter [Trelegy Ellipta 200-62.5-25] 1 EACH Bl INHALATION SCH (09:00)
[2025-02-28] MEDS ORDERED: ISOSORBIDE MONONITRATE ER 15 MG TAB PO SCH (09:00)
[2025-02-28] MEDS ORDERED: hydroCHLOROthiazide 25 MG TAB PO SCH (09:00)
[2025-02-28] MEDS ORDERED: VITAMIN D3 PO SCH (09:00)
== END 2025-02-27 17:25 | disposition home or self-care (01) ==
LOC: CATHCVL 08:49
PROVIDERS: ATTEND Internal Medicine Interventional Cardiology
DX: I25.110 Atherosclerotic heart disease of native coronary artery with unstable angina pectoris (principal); I25.2 Old myocardial infarction; Z95.5 Presence of coronary angioplasty implant and graft; I10 Essential (primary) hypertension; E78.00 Pure hypercholesterolemia, unspecified; J44.9 Chronic obstructive pulmonary disease, unspecified; Z79.82 Long term (current) use of aspirin; Z79.51 Long term (current) use of inhaled steroids; Z79.899 Other long term (current) drug therapy; Z87.891 Personal history of nicotine dependence
CPT/HCPCS: 92978; 93458; 93799; C9600; C1894; C1769 ×2; C1753; C1725; J2250; J1644 ×3; J2003; Q9967; J2305

== ENCOUNTER 2025-03-01 08:21 | Observation (INO) | payer MEDICARE ==
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
[2025-03-01] MEDS: ASPIRIN 81 MG PO STA (08:55)
[2025-03-01] MEDS: NITROGLYCERIN OINT 1 INCH/GM PACKET TOPICAL STA (08:55)
[2025-03-01 09:01] LABS: Basophils % (A) 0 %; Eosinophils # (A) 0.1 k/uL (0-0.7); Eosinophils % (A) 2 %; HCT 47.1 % (39.0-53.0); HGB 15.9 gm/dL (13.0-17.5); Lymphocytes # (A) 0.9 k/uL (1.0-4.8); Lymphocytes % (A) 13 %; MCH 30.9 pg (25.0-35.0); MCHC 33.8 g/dL (31.0-37.0); MCV 91.3 fL (80.0-100.0); Mean Platelet Volume 7.3; Monocytes # (A) 0.4 k/uL (0-1.0); Monocytes % (A) 6 %; Neutrophils # (A) 5.2 k/uL (1.3-7.7); Neutrophils % (A) 77 %; Platelet Count 205 k/uL (150-450); RBC 5.16 m/uL (4.30-5.90); RDW 12.5 % (11.5-15.5); WBC 6.7 k/uL (3.8-10.6)
[2025-03-01 09:10] LABS: Partial Thromboplastin Time 23.8 sec (22.0-30.0); Prothrombin Time 10.7 sec (10.0-12.5)
[2025-03-01 09:14] LABS: ALT 23 U/L (4-49); AST 26 U/L (17-59); African American GFR (CKD) 79 (>60 ml/min/1.73 sqM); Albumin 4.2 g/dL (3.5-5.0); Alkaline Phosphatase 74 U/L (38-126); Anion Gap 9 mmol/L; Blood Urea Nitrogen 21 mg/dL (9-20); Calcium 9.6 mg/dL (8.4-10.2); Carbon Dioxide 22 mmol/L (22-30); Chloride 103 mmol/L (98-107); Glucose 122 mg/dL (74-99); Magnesium 1.8 mg/dL (1.6-2.3); Non-African American GFR(CKD) 68 (>60 ml/min/1.73 sqM); Potassium 4.1 mmol/L (3.5-5.1); Sodium 134 mmol/L (137-145); Total Bilirubin 1.1 mg/dL (0.2-1.3)
--- NOTE | 2025-03-01 09:17 | XR ---
EXAMINATION TYPE: XR chest 2V DATE OF EXAM: 03/01/2025 9:07 AM COMPARISON: 02/11/2024 CLINICAL INDICATION: Male, 69 years old with history of Chest Pain, short of breath, stent placed TECHNIQUE: XR chest 2V view(s) obtained. FINDINGS: The heart size is normal. The pulmonary vasculature is normal. The lungs are clear. IMPRESSION: 1. No acute pulmonary process. [facility], , 03/01/2025 9:14 AM
[2025-03-01 09:22] LABS: NT-Pro-B-Type Natriuretic Pept 129 pg/mL
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
[2025-03-01] MEDS: TICAGRELOR 90 MG TAB PO SCH (12:47)
[2025-03-01] MEDS: ISOSORBIDE MONONITRATE ER 30 MG TAB.ER.24H PO SCH (12:48)
[2025-03-01] MEDS: lisinopriL 20 MG TAB PO SCH (12:48)
[2025-03-01] MEDS: atenoloL 25 MG TAB PO SCH (12:48)
[2025-03-01] MEDS: amLODIPine 10 MG TAB PO SCH (12:48)
[2025-03-01] MEDS ORDERED: EZETIMIBE 10 MG TAB PO SCH (19:00)
[2025-03-01] MEDS: FUROSEMIDE 10 MG/ML 4 ML VIAL IV STA (20:18)
[2025-03-01] MEDS: RANOLAZINE 500 MG TAB.ER.12H PO SCH (20:18)
[2025-03-01] MEDS: CLOPIDOGREL 75 MG TAB PO STA (20:19)
[2025-03-01] MEDS: SPIRONOLACTONE 25 MG TAB PO SCH (20:23)
[2025-03-01] MEDS: METOPROLOL SUCCINATE (ER) 25 MG TAB.ER.24H PO SCH (20:24)
[2025-03-01] MEDS: ATORVASTATIN 40 MG TAB PO SCH (20:24)
[2025-03-01] MEDS ORDERED: ATORVASTATIN 80 MG TAB PO SCH (21:00)
[2025-03-01] MEDS: IPRATROPIUM-ALBUTEROL 3 ML NEB INHALATION SCH (21:09)
[2025-03-01] MEDS: SYMBICORT 80-4.5 MCG INHALER INHALATION SCH (21:09)
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
[2025-03-02 08:35] VITALS: TEMP 98.2
[2025-03-02] MEDS: CLOPIDOGREL 75 MG TAB PO SCH (08:53)
[2025-03-02] MEDS: ASPIRIN 81 MG PO SCH (08:53)
[2025-03-02] MEDS: amLODIPine 5 MG TAB PO SCH (08:53)
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
[2025-03-02 11:47] LABS: Chol/HDL Ratio 4.44 Ratio; LDL Cholesterol,Calculated 156.5 mg/dL (0.0-131.0)
[2025-03-02 12:54] VITALS: BP 118/72; PULSE 64; RESP 20
--- NOTE | 2025-03-02 15:59 | P.PN ---
Subjective Progress Note Date: 03/02/25 HISTORY OF PRESENTING ILLNESS: Patient is a 69-year-old male who presents to the hospital because of increased worsening substernal chest heaviness along with shortness of breath and mostly predominant symptom of orthopnea. He sees Dr. Hernandez in the office and 2 days ago he had a outpatient heart catheterization done which showed severe disease in proximal LCx which required PCI. He had moderate disease in RCA which was negative IFR. He has a prior BMS in the RCA which was patent with mild to moderate in-stent disease. On admission he had mild elevation of troponins and with a flat pattern, NT-pr oBNP was not elevated BUN and creatinine were essentially within normal limits, normal hemoglobin Blood pressure was elevated at 178/96, saturating well on room air EKG showed sinus rhythm with Q waves in lateral leads 03/02/2025 Patient reports that his shortness of breath and chest tightness resolved today. His blood pressure is optimally controlled Does not appear volume overloaded Telemetry shows sinus rhythm PHYSICAL EXAMINATION: Neck: Brisk carotid upstroke, mildly elevated jugular venous distention. Lungs: Mild crackles audible Heart: Regular rate and rhythm, S1-S2, , no murmur or rub. Abdomen: Soft nontender, positive bowel sounds. Extremities: No edema, intact distal pulses. Neuro: Alert, oritented, no focal deficits. Detailed neuro exam was not performed. ASSESSMENT: # Mild HFpEF exacerbation # Dyspnea on exertion with orthopnea # Elevated troponin with flat pattern, likely from recent coronary intervention. Less likely related to ACS # Substernal chest pressure likely from HFpEF exacerbation. # Stable CAD, recent PCI to LCx. Residual moderate nonobstructive disease in RCA, mild mid LAD # Essential hypertension, poorly controlled # Sinus bradycardia # History of tobacco smoker # History of COPD # Dyslipidemia, TG 155, LDL 156 # Prediabetes A1c 6.3 PLAN: Discontinue Brilinta as sometimes it can cause shortness of breath symptoms like the one patient is describing. Continue Plavix 75 mg, Aspirin 81 mg, Lipitor 40 mg Continue Imdur 30 mg, add Ranexa 500 mg daily, add metoprolol 12.5 mg daily. Low-dose because of low resting heart rate Continue Aldactone 12.5 mg daily Recommend outpatient follow-up Recommend outpatient echocardiogram Objective - Vital Signs Vital signs: Vital Signs Temp 98.2 F 03/02/25 08:32 Pulse 64 03/02/25 12:53 Resp 20 03/02/25 12:53 BP 118/72 03/02/25 12:53 Pulse Ox 93 L 03/02/25 12:53 FiO2 21 03/02/25 07:51 Intake & Output 03/01/25 03/02/25 03/02/25 18:59 06:59 18:59 Intake Total 240 598 Output Total 0 600 0 Balance 240 -600 598 Weight 88.451 kg 89 kg Intake: Oral 240 598 Output: Gastric Drainage 0 Urine 0 600 Stool 0 0 Urine/Stool Mix 0 Emesis 0 Oral Regurgitation 0 Other 0 Other: # Voids 0 # Bowel Movements 0 - Labs CBC & Chem 7: 03/01/25 08:35 03/01/25 08:35 Labs: Abnormal Lab Results - Last 24 Hours (Table) 03/01/25 03/01/25 Range/Units 08:35 08:35 Hemoglobin A1c 6.3 H (<=6.0) % Triglycerides 155.00 H (0.00-149.00) mg/dL Cholesterol 242.00 H (0.00-200.00) mg/dL LDL Cholesterol, Calc 156.5 H (0.0-131.0) mg/dL
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
== END 2025-03-02 16:24 | disposition home or self-care (01) ==
LOC: EC 08:21 → 3SCARD 09:52
PROVIDERS: ADMIT Internal Medicine; ATTEND Internal Medicine
DX: I11.0 Hypertensive heart disease with heart failure (principal); I50.33 Acute on chronic diastolic (congestive) heart failure; G89.18 Other acute postprocedural pain; R07.2 Precordial pain; T82.855A Stenosis of coronary artery stent, initial encounter; I25.10 Atherosclerotic heart disease of native coronary artery without angina pectoris; Z95.5 Presence of coronary angioplasty implant and graft; R00.1 Bradycardia, unspecified; R79.89 Other specified abnormal findings of blood chemistry; E78.5 Hyperlipidemia, unspecified; M19.90 Unspecified osteoarthritis, unspecified site; J44.9 Chronic obstructive pulmonary disease, unspecified; R73.03 Prediabetes; Z79.82 Long term (current) use of aspirin; Z79.02 Long term (current) use of antithrombotics/antiplatelets; Z79.51 Long term (current) use of inhaled steroids; Z79.899 Other long term (current) drug therapy; Z87.891 Personal history of nicotine dependence; Z85.828 Personal history of other malignant neoplasm of skin; Z87.828 Personal history of other (healed) physical injury and trauma
CPT/HCPCS: 96374; 99285; 36415; 94760; 93005; 83880; 80061; 80053; 84443; 83735; 84484; 85025; 85610; 85730; 83036; 71046; G0378 ×2; J1940

== ENCOUNTER → 2025-06-02 | Outpatient (CLI) | payer MEDICARE ==
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
== END | disposition home or self-care (01) ==
LOC: RADCTMAIN 09:38
PROVIDERS: ATTEND Family Medicine
DX: Z12.2 Encounter for screening for malignant neoplasm of respiratory organs (principal); J43.2 Centrilobular emphysema; R91.8 Other nonspecific abnormal finding of lung field; Z87.891 Personal history of nicotine dependence
CPT/HCPCS: 71271